=== PATIENT | female | born 1945 | race Caucasian/White ===

== ENCOUNTER 2016-10-09 09:03 | Inpatient (IN) | payer MEDICARE, OTHER ==
--- NOTE | 2016-10-05 10:51 | CONS ---
DATE OF ADMISSION: 10/09/2016 DATE OF CONSULTATION: 10/04/2016 Patient to have surgery with Dr. Manny Wallace 10/09/2016. REASON FOR CONSULTATION: Consultation requested by Dr. Manny Wallace for medical evaluation and clearance of a 71-year-old woman about to undergo surgery on her lumbar spine. Thank you, Dr. Wallace, for participating and allowing us to participate in the care of our patient. HISTORY OF PRESENT ILLNESS: Patt Foster is a 71-year-old woman issues with her back with extreme sciatic and discomfort is currently being admitted for correction of the above problem and will be undergoing decompression as well as fusion at L4-L5. PAST SURGICAL HISTORY: In terms of her past surgical history she has actually only had 2 breast biopsies, and no surgery. This will be the first major surgery she has had. She has had 1 medical hospitalization for rule out [place], which turned out not to be any particular problem. PAST MEDICAL HISTORY: Her main medical issues are diabetes. In general, hypothyroidism and some mild glaucoma, other than that has been managing relatively well. MEDICATIONS: She is currently taking the following medications: 1. GLIMEPRIMEDE 4 mg b.i.d. 2. Venlafaxine ER 150 mg a day. 3. Metformin 500 mg b.i.d. 4. Onglyza 5 mg a day. 5. Levothyroxine 75 mg a day. 6. Simvastatin 40 mg a day. 7. Jardiance 10 mg a day. 8. Eyedrops for glaucoma as well as mirtazapine 15 mg at bedtime. 9. TOPAMAX 100 mg b.i.d. ALLERGIES: SHE IS NOT ALLERGIC TO ANY MEDICINES. SOCIAL HISTORY: The patient is single, has no children. She does not smoke. Alcohol socially. Does drink coffee. Usually has no difficulty sleeping at night and worked for [employer], but currently retired. REVIEW OF SYSTEMS: HEENT: Denies any significant headaches. CARDIORESPIRATORY: Denies any chest pain or shortness of breath. GASTROINTESTINAL: No melena or hematemesis. GENITOURINARY: No urgency, frequency. GYNECOLOGIC: Postmenopause, up to date. MUSCULOSKELETAL: Positive for back pain. NEUROPSYCHIATRIC: Unremarkable other than some anxiety disorder. GENERAL HEALTH: Has been good. PHYSICAL EXAMINATION: VITAL SIGNS: The patient's blood pressure was 134/80, her pulse was 86, respirations were 18, temperature was 97.9, height 5 feet 8 inches, weight 195 pounds. GENERAL: The patient was noted to be a well-developed, well-nourished female, alert and cooperative, in no apparent acute distress, oriented to time, place, and person. HEAD, EARS, EYES, NOSE AND THROAT: Head was atraumatic. Eyes: Pupils were equal, reactive to light and accommodation. Fundi were benign. Tympanic membranes were unremarkable. Nose was negative. Mouth was unremarkable. Fair oral hygiene was present. NECK: Supple without any rigidity. Trachea was midline. Thyroid was within normal limits. Neck veins were flat. Carotid pulses were equal. No bruits were heard. BACK: Some tenderness of the lower back, but not any significant amount of muscle spasm. CHEST: Symmetrical. BREASTS AND AXILLARY EXAM: Did not reveal any masses. LUNGS: Clear to percussion and auscultation. HEART: PMI at the fifth intercostal space at the midclavicular line. Regular sinus rhythm was noted. No significant murmurs, rubs, or gallops being elicited. ABDOMEN: Soft, good bowel sounds were noted. No significant organomegaly, masses, or tenderness. GENITALIA: Female external genitalia. PELVIC/RECTAL: Per PCP unremarkable. EXTREMITIES: Did not reveal any clubbing, edema or cyanosis. Peripheral pulses were physiologic. SKIN: Moist and warm without any eruptions. No gross lymphadenopathy was noted. NEUROLOGICAL: Grossly intact. IMPRESSION: 1. Lumbar disk disease particularly L4-L5. 2. Diabetes mellitus type 2, under fairly good control. 3. Hypothyroidism. 4. Glaucoma. 5. Anxiety disorder. 6. Stable health. DISCUSSION: Review of laboratory and other data revealed the following: The patient's chemistry panel revealed a random post-prandial glucose of 210, normal electrolytes, BUN and creatinine, liver function tests, serum iron was minimally low. Her CBC revealed a mild anemia, albeit 11.2 hemoglobin, 35.6 hematocrit, however, the cells were not totally microcytic. The patient's urinalysis, PT, PTT were normal. The patient's EKG revealed some nonspecific ST -T wave changes, unchanged from prior surgeries and no acute hyperacute changes being noted on chest x-ray other than a pectus deformity and degenerative joint disease. The back did not reveal any acute infiltrates or any acute other abnormalities. DISCUSSION: Dr. Wallace, I see no contraindication in this patient undergoing current proposed surgery under desired form of anesthesia, and feel that she is a suitable candidate at this particular point in time and we will be following her along with you. Thank you again, Dr. Wallace, for participating and allowing us to participate in the care of our patient. Dictated By: BRISEYDA ROYAL/ANTHONY Conf#: [id number] DID#: [id number] MTDD
[2016-10-06 18:14] VITALS: BMI 29.5
[2016-10-09] VITALS (19 sets, daily range): BP systolic 126–140; BP diastolic 61–73; PULSE 60–103; RESP 14–18; Ht 172.7 cm; Wt 88.1 kg
[~2016-10-09] VITALS: Ht 172.7 cm; Wt 88.1 kg
[~2016-10-09 09:03] MED LIST: POLYMYXIN/BACITRACIN 1L IRRIG IRR ONE
[2016-10-09] MEDS ORDERED: GLIM4TAB PO (09:48)
[2016-10-09] MEDS ORDERED: LATA2.5D2 BOTH EYES (09:49)
[2016-10-09] MEDS ORDERED: METF500T3 PO (09:49)
[2016-10-09] MEDS ORDERED: VENL150T PO (09:51)
[2016-10-09] MEDS ORDERED: SAXA5TAB2 PO (09:52)
[2016-10-09] MEDS ORDERED: SIMV40TA2 PO (09:52)
[2016-10-09] MEDS ORDERED: LEVO75TA65 PO (09:53)
[2016-10-09] MEDS ORDERED: EMPA10TA PO (09:53)
[2016-10-09] MEDS ORDERED: MIRT15TA PO (09:54)
[2016-10-09] MEDS ORDERED: TOPI-25 PO (09:54)
[2016-10-09] MEDS ORDERED: [UNRECOGNIZED DRUG - CODE] TP (09:56)
[2016-10-09] MEDS ORDERED: OXYC-209 PO (09:57)
[2016-10-09] MEDS ORDERED: CYCL-319 PO (09:58)
[2016-10-09] MEDS ORDERED: LACTATED RINGER'S 1,000 ML IV* SCH (11:00)
[2016-10-09] MEDS ORDERED: CEFAZOLIN 2 GM/50 ML (PMX) 50 ML IVPB SCH (11:00)
[2016-10-09] MEDS ORDERED: MIDAZOLAM 1 MG/ML 2 ML INJ ONE (11:45)
[2016-10-09] MEDS ORDERED: PROPOFOL 100 ML ONE (11:45)
[2016-10-09] MEDS ORDERED: GELATIN SIZE 100 SPONGE ONE (11:48)
[2016-10-09] MEDS ORDERED: SURGIFOAM POWDER 1 GM KIT ONE (11:48)
[2016-10-09] MEDS ORDERED: BUPIVACAINE 0.25% (MPF) 30 ML INJ ONE (11:48)
[2016-10-09] MEDS ORDERED: BUPIVACAINE 0.25%/EPI (SDV) 30 ML INJ ONE (11:48)
[2016-10-09] MEDS ORDERED: HEPARIN 1000 UNITS/ML 10 ML INJ ONE (11:49)
[2016-10-09] MEDS ORDERED: THROMBIN 5000 UNIT VIAL ONE (11:49)
[2016-10-09] MEDS ORDERED: CEFAZOLIN 1 GM INJ ONE ×3 (11:50→15:42)
--- NOTE | 2016-10-09 12:16 | HPN ---
Date/Time of Note Date/Time of Note DATE: 10/09/16 TIME: 12:16 Interval H&P Admission Note Pt. seen H&P reviewed: No system changes EDGAR SINGLETON PA-C Oct 09, 2016 12:16
[2016-10-09] MEDS ORDERED: ACETAMINOPHEN 325 MG TAB PO PRN (12:30)
[2016-10-09] MEDS ORDERED: ONDANSETRON 4 MG INJ IV PRN ×2 (12:30→16:30)
[2016-10-09] MEDS ORDERED: NALOXONE (0.4 MG/ML) INJ IV PRN (12:30)
[2016-10-09] MEDS ORDERED: BISACODYL 10 MG SUPP PR PRN (12:30)
[2016-10-09] MEDS ORDERED: ZOLPIDEM 5 MG TAB PO PRN (12:30)
[2016-10-09] MEDS ORDERED: CARISOPRODOL 350 MG TAB PO PRN (12:30)
[2016-10-09] MEDS ORDERED: HYDROmorphONE 1 MG/ML SYG IV PRN (12:30)
[2016-10-09] MEDS ORDERED: DIPHENHYDRAMINE 50 MG INJ IV PRN ×2 (12:30→16:30)
[2016-10-09] MEDS ORDERED: CEPASTAT LOZENGE MT PRN (12:30)
[2016-10-09] MEDS ORDERED: HYDROmorphONE 0.2 MG/ML PCA IV SCH (12:30)
[2016-10-09] MEDS ORDERED: AL HYDROX/MG HYDROX/SIMETH 30 ML CUP PO PRN (12:30)
[2016-10-09] MEDS ORDERED: PHENYLephrine (100 MCG/ML) 5ML SYG ONE (13:02)
[2016-10-09] MEDS ORDERED: CA CHLORIDE 10% 10 ML SYRINGE ONE (13:03)
[2016-10-09] MEDS ORDERED: THROMBIN 5000 UNIT VIAL TOP ONE (13:07)
[2016-10-09] MEDS ORDERED: BUPIVACAINE 0.25%/EPI (SDV) 30 ML INJ INJ ONE (13:07)
[2016-10-09] MEDS ORDERED: ACETAMINOPHEN 1000MG/100ML IV 100 ML ONE (13:53)
[2016-10-09] MEDS ORDERED: METOCLOPRAMIDE 10 MG INJ ONE (13:53)
[2016-10-09] MEDS ORDERED: DEXAMETHASONE 4 MG/ML 1 ML INJ ONE (13:53)
[2016-10-09] MEDS ORDERED: ONDANSETRON 4 MG INJ ONE (13:53)
[2016-10-09] MEDS ORDERED: PROPOFOL 40 ML ONE (15:10)
[2016-10-09] MEDS ORDERED: FENTAnyl 50 MCG/ML VIAL ONE (15:38)
[2016-10-09] MEDS ORDERED: NEOSTIGMINE 3 MG/3 ML SYRINGE ONE (16:06)
[2016-10-09] MEDS ORDERED: GLYCOPYRROLATE 1 MG INJ ONE (16:06)
[2016-10-09] MEDS ORDERED: HYDROmorphONE (0.2 MG/ML) 10ML SYG IV PRN ×3 (16:30)
[2016-10-09] MEDS ORDERED: METOCLOPRAMIDE 10 MG INJ IV PRN (16:30)
[2016-10-09] MEDS ORDERED: MEPERIDINE 25 MG INJ IV PRN (16:30)
[2016-10-09] MEDS ORDERED: morphine (1 MG/ML) 10ML SYRINGE IV PRN ×3 (16:30)
[2016-10-09] MEDS ORDERED: EPHEDrine SULFATE 50 MG/5 ML SYG IV PRN (16:30)
[2016-10-09] MEDS ORDERED: LABETALOL HCL 20MG INJ IV PRN (16:30)
--- NOTE | 2016-10-09 16:32 | RADRPT ---
PROCEDURE: Intraoperative fluoroscopy. CLINICAL INDICATION: Intraoperative fluoroscopy during L4-5 lumbar fusion. TECHNIQUE: 12 spot intraoperative fluoroscopic images were provided. The images were reviewed on a high-resolution PACS workstation. COMPARISON: None available FINDINGS: Multiple spot intraoperative fluoroscopic views were provided during L4-5 lumbar fusion. The images demonstrate and is placement of pedicle screws in the L4 and L5 vertebral bodies and subsequent zaida cement of disc-space. The final images demonstrate hardware in satisfactory position. The total fl uoroscopy time was 53.6 seconds. IMPRESSION: 1. Multiple spot intraoperative fluoroscopic views during L4-5 lumbar fusion were provided. 2. Please see operative report of the same day for further information. RPTAT: HGAS .Trent Junior MD, Date Time Electronically viewed and signed by .Trnet Junior MD, on 10/09/2016 16:32 .S/
[2016-10-09] MEDS ORDERED: NALOXONE (0.4 MG/ML) INJ ONE (16:34)
[2016-10-09 17:05] LABS: ADD UMIC NO; URINE BILIRUBIN (Dip) NEGATIVE (NEGATIVE); URINE BLOOD (Dip) NEGATIVE (NEGATIVE); URINE COLOR LT. YELLOW (YELLOW); URINE KETONES (Dip) TRACE (NEGATIVE); URINE LEUKOCYTE ESTERASE (Dip) NEGATIVE (NEGATIVE); URINE NITRITE (Dip) NEGATIVE (NEGATIVE); URINE TOTAL PROTEIN (Dip) NEGATIVE (NEGATIVE); URINE UROBILINOGEN (Dip) 0.2 E.U./dL (0.1-1.0)
[2016-10-09] MEDS ORDERED: CEFAZOLIN 1 GM/50 ML (PMX) 50 ML IVPB SCH (18:00)
[2016-10-09] MEDS: GLIMEPIRIDE 4 MG TAB PO SCH (18:00)
[2016-10-09] MEDS: INSULIN ASPART [NOVOLOG] 3 ML PEN SC SCH ×2 (18:00→21:00)
--- NOTE | 2016-10-09 18:00 | CONS ---
Date/Time of Note Date/Time of Note DATE: 10/09/16 TIME: 17:57 Assessment/Plan Assessment/Plan Problems: (1) Status post lumbar discectomy Status: Acute Comment: She is seen postoperatively in stable in the recovery room. Continue care (2) Diabetes mellitus type 2 in obese Status: Chronic Comment: She will be on some of her outpatient regimen medications in addition she will be on Accu-Cheks and a sliding scale as needed. (3) Dysthymia (or depressive neurosis) Status: Chronic Comment: To continue her regular medications. Consultation Date/Type/Reason Admit Date/Time Oct 09, 2016 at 09:03 Initial Consult Date 10/09/2016 Type of Consultation: Internal medicine Reason for Consultation Postop care for diabetes dysthymia etc. Referring Provider: CARLITOS ROMERO MD 24 HR Interval Summary Free Text/Dictation Patient seen in recovery room. She is arousable and was somewhat direction can answer questions. Detailed Summary Respiratory: no complaints Cardiovascular: no complaints Gastrointestinal: no complaints Exam/Review of Systems Vital Signs Vitals Vital Signs Date Time Temp Pulse Resp B/P Pulse Ox O2 Delivery O2 Flow Rate FiO2 10/09/16 17:21 90 14 140/71 98 Nasal Cannula 3.0 10/09/16 16:41 98.5 Exam Arousable oriented to person and place Neck: non-tender, supple Respiratory: clear to auscultation, normal air movement Cardiovascular: nl pulses, regular rate and rhythm Gastrointestinal: nl liver, spleen, non-tender, soft Neurological: CUSTOMER SOLUTIONS COORDINATOR II-XII intact, nl mental status, nl speech, nl strength, other (Moves lower extremity) Results Results 24 hrs Laboratory Tests Test 10/09/16 10:54 10/09/16 16:38 10/09/16 16:39 Bedside Glucose 129 186 Urine Color LT. YELLOW Urine Clarity CLEAR Urine pH 5.0 Urine Specific [place] 1.020 Urine Ketones TRACE H Urine Nitrite NEGATIVE Urine Bilirubin NEGATIVE Urine Urobilinogen 0.2 E.U./dL Urine Leukocyte Esterase NEGATIVE Urine Hemoglobin NEGATIVE Urine Glucose 0.5% H Urine Total Protein NEGATIVE Medications Medications Current Medications Cefazolin Sodium/ Dextrose 50 ml @ 100 mls/hr PREOP IVPB ; Start 10/09/16 at 11 :00; Stop 10/09/16 at 23:00 Lactated Ringer's 1,000 ml @ 0 mls/hr Q0M IV* ; Start 10/09/16 at 11:00; Stop 10/09/16 at 23:00 Potassium Chloride/Sodium Chloride (1/2 NS + KCl 20 Meq) 1,000 ml @ 100 mls/hr Q10H IV ; Start 10/09/16 at 12:16 Oxycodone/ Acetaminophen (Endocet (10/ 325)) 1 tab Q4H PRN PO PAIN LEVEL 1-5; Start 10/11/16 at 10:00 Oxycodone/ Acetaminophen (Endocet (10/ 325)) 2 tab Q4H PRN PO PAIN LEVEL 6-10; Start 10/11/16 at 10:00 Hydromorphone HCl 0.2 mg 0.2 mg Q1H PRN IV BREAKTHROUGH PAIN; Start 10/09/16 at 12:30 Cefazolin Sodium (Ancef 1 Gm/50 ml (Pmx)) 50 ml @ 100 mls/hr Q8H IVPB ; Start 10/09/16 at 18:00; Stop 10/10/16 at 10:29 Ondansetron HCl (Zofran Inj) 4 mg Q6H PRN IV NAUSEA AND/OR VOMITING; Start at 12:30 Bisacodyl (Dulcolax Supp) 10 mg DAILY PRN [place] CONSTIPATION; Start 10/09/16 at 12 :30 Docusate Sodium (Colace) 100 mg BID PO ; Start 10/09/16 at 21:00 Al Hydrox/Mg Hydrox/Simethicone (Mag-Al Plus) 15 ml Q6H PRN PO CONSTIPATION/ DYSPEPSIA; Start 10/09/16 at 12:30 Acetaminophen (Tylenol Tab) 650 mg Q4H PRN PO GONZALEZ OR TEMP GREATER THAN 101.3F; Start 10/09/16 at 12:30 Carisoprodol (Soma) 350 mg TID PRN PO MUSCLE SPASMS; Start 10/09/16 at 12:30 Phenol (Cepastat Lozenge) 1 lozenge PRN PRN MT SORE THROAT; Start 10/09/16 at 12:30 Diphenhydramine HCl (Benadryl) 25 mg Q6H PRN IV ITCHING; Start 10/09/16 at 12: 30 Naloxone HCl (Narcan) 0.2 mg Q2M PRN IV RR 8 BREATHS/MIN OR LESS; Start at 12:30 Hydromorphone HCl (Dilaudid FASTENER TECHNOLOGIST) FASTENER TECHNOLOGIST to be started in PACU Q4PCA IV Last administered on 10/09/16t 17:11; Admin Dose 6 MG; Start 10/09/16 at 12:30; Stop 10/11/16 at 10:00 Miscellaneous Information 1. Hold FASTENER TECHNOLOGIST at 1,000... FASTENER TECHNOLOGIST IV ; Start 10/09/16 at 12: 30; Stop 10/11/16 at 10:00 RAMIREZ GAINES MD Oct 09, 2016 18:00
[2016-10-09] MEDS: metFORMIN (XR) 500 MG TAB PO SCH (18:30)
--- NOTE | 2016-10-09 19:23 | OPR ---
DATE OF OPERATION: 10/09/2016 PREOPERATIVE DIAGNOSIS: Unstable grade II degenerative spondylolisthesis with stenosis and radiculo leonel at L4-L5. POSTOPERATIVE DIAGNOSIS: Unstable grade II degenerative spondylolisthesis with stenosis and radicul opathy at L4-L5. OPERATION PERFORMED: 1. Pedicle screw placement at L4 and L5. 2. Left L4-5 and L5-S1 nerve root decompression for stenosis. 3. Transforaminal lumbar interbody fusion at L4-5. 4. Placement of intervertebral biomechanical device at L4-5. 5. Iliac crest bone marrow aspiration. 6. Posterolateral fusion at L4-5. 7. Use of allograft. 8. Use of autograft. 9. Use of C-arm fluoroscopy with interpretation without radiologist present. 10. Intraoperative neuromonitoring (3 hours). 11. Use of operative microscope. 12. Epidural injection via catheter. PRIMARY SURGEON: Manny Wallace MD INDUSTRIAL INSULATOR: Alanis Martinez PA-C NEED FOR PAPER CORE MACHINE OPERATOR: During this spinal surgical procedure, my pharmacy technician assistant was used to retrac t and protect the spinal nerves and dural sac. My pharmacy technician assistant also employed the suction catheters to evacuate blood from the surgical field to improve visualization of the neural structures. The vianca tant was medically necessary to facilitate the completion of the surgery in a safe and expeditious m belkis. State of [place] regulations, as well as hospital bylaws, preclude the use of non-license d health care personnel, such as operating room technicians, to perform these functions. FINDINGS: Neuromonitoring at the start of the case revealed left L4 and L5 amplitudes down 30%. At the end of the case, nerve signals returned to normal. The patient had an unstable listhesis with stenosis. ESTIMATED BLOOD LOSS: 200 mL. DRAINS: None. SPECIMENS: L4-5 disk. COMPLICATIONS OF PROCEDURES: None. ANESTHESIOLOGIST: Dr. Palafox TYPE OF ANESTHESIA: General. INDICATIONS FOR PROCEDURE: This is a 71-year-old female with left lumbosacral radiculopathy in the setting of an unstable listhesis at L4-L5. She has failed nonoperative measures, therefore, I recom mended proceeding with the above-mentioned surgery. Preoperatively, we discussed the risks, benefit s, and alternatives. She understood and wished to proceed. IMPLANTS: 1. Benvenue Salome 12 mm. 2. Neurostructure Palladian pedicle screws 6.5 x 40 mm bilaterally at L4-L5. 3. Fibergraft. DESCRIPTION OF PROCEDURE IN DETAIL: The patient was identified in the preoperative holding area, to chiang, taken to the operating room, where she was successfully placed under general a nesthesia. Neuromonitoring leads were placed, sequential compressive devices were applied. Child c atheter was introduced. Neuromonitoring was utilized during the procedure for 3 hours to include SS EP, MEP, and EMG. This was performed by [place]. Start time was 1:20 p.m., closure time w as 4:20 p.m. The patient was placed in downward turned prone position over a Arturo frame. All bon y prominences were well padded. The back was then prepped and draped in usual sterile fashion. Usi ng the C-arm fluoroscope, I identified the incision site. I anesthetized and paraspinal musculature with 0.25% Marcaine and epinephrine. Incision was then made over the L4-5 level. Incision was laurence en down to dorsal fascia, which was incised with Bovie cautery. I then subperiosteally dissected th e L4 and L5 lamina to the transverse processes. I took imaging to confirm the correct levels. Once this was confirmed, I placed pedicle screws bilaterally at L4 and L5 confirmed placement using the C-arm fluoroscope. Once the pedicle screws were in, I stimulated each of the screws and there was n o evidence of cortical breach. I then performed a right-sided decompression at the L4-5 level. Thi s decompression was done in order to alleviate the stenosis and beyond what was required in order to perform an interbody fusion. I visualized and decompressed the left L4 and L5 nerve roots. Once t his was completed, all nerve signals returned to normal. Microscope was then brought in and annulot savanna was made followed by radical diskectomy. Significant amount of time was spent performing a disk ectomy in order to perform the interbody fusion. I prepared the endplates and placed various trials . I then took the PEEK cage, within which I placed allograft, and I impacted the intervertebral bio mechanical device into the L4-5 level. I deployed this under C-arm imaging for lordosis. I then ba ck filled cage using Fibergraft. I then cut the wires. The Arturo frame was then let down. Keshawn darden was taken off the field. I placed the 45 mm rods bilaterally with compression across the pedic le screws with setscrew placed followed by tightening per party director specifications. At this poin t, I took final AP and lateral images and was happy with placement of the hardware and alignment of the spine. Bone marrow aspiration was then performed from the right iliac crest and the bone marrow was spun down using the Memoright device. I then irrigated the wound. I did not perform a right-si ded decompression, as the patient only had left-sided symptoms. I burred the transverse processes b ilaterally at L4 and L5 as well as the posterior lamina of L4 and L5. I then took autograft and all ograft and I performed a posterolateral fusion. Epidural catheter was passed through which I inject ed 100 mcg fentanyl mixed with 2 mL of Marcaine 0.25% preservative-free, and the catheter was pulled . I then took the platelet-poor plasma mixed with thrombin and injected this over the dura for hemo static purposes. There is minimal bleeding, therefore, I elected not to place a drain. The transfo raminal lumbar interbody fusion was completed and I checked the cage once I had compressed and there was no motion of the cage. I then closed the deep fascia with a running Stratafix suture. I close d the subcutaneous tissue with 2-0 Vicryl stitch. I then performed a 4-0 Monocryl closure followed by placement of Dermabond and sterile dressings. The patient was awakened from anesthesia and taken to the recovery room in stable condition. Lap, sponge, and instrument counts were correct x2. The re were no apparent complications during the procedure. The patient will be admitted to the orthopedic [facility] for routine postoperative care to include pain c ontrol, neurovascular checks, antibiotics, and physical therapy. Dictated By: MANNY JONES/ANTHONY Conf#: [id number] DID#: [id number]
[2016-10-09] MEDS: 1/2 NS + KCL 20 MEQ 1,000 ML IV SCH ×2 (19:34→22:16)
[2016-10-09] MEDS: ACCU-CHEK XX SCH (19:55)
[2016-10-09] MEDS: TOPIRAMATE 100 MG TAB PO SCH (21:27)
[2016-10-09] MEDS: DOCUSATE SODIUM 100 MG CAP PO SCH (21:27)
[2016-10-09] MEDS: MIRTAZAPINE 15 MG TAB PO SCH (21:27)
[2016-10-09] MEDS: ATORVASTATIN 40 MG TAB PO SCH (21:27)
[2016-10-09] MEDS: CEFAZOLIN 1 GM/50 ML (PMX) 50 ML IVPB SCH (21:28)
[2016-10-09] MEDS: LATANOPROST 0.005% 2.5 ML OPH BOTH EYES SCH (21:28)
[2016-10-10] VITALS (12 sets, daily range): BP systolic 78–166; BP diastolic 44–74; PULSE 56–116; RESP 18–20
[2016-10-10] MEDS: ACCU-CHEK XX SCH ×2 (02:00→09:50)
[2016-10-10] MEDS ORDERED: ACCU-CHEK XX SCH (02:00)
[2016-10-10] MEDS: CEFAZOLIN 1 GM/50 ML (PMX) 50 ML IVPB SCH ×2 (05:08→13:32)
[2016-10-10 05:13] LABS: ADD SCAN DIFF NO
[2016-10-10 05:23] LABS: BASOPHILS % 0.2 % (0.0-2.0); EOSINOPHILS % 0.3 % (0.0-7.0); HEMATOCRIT 32.4 % (37.0-47.0); HEMOGLOBIN 10.1 g/dl (12.0-16.0); LYMPHOCYTES # 2.7 10^3/ul (0.8-2.9); LYMPHOCYTES % 22.2 % (15.0-51.0); MEAN CORPUSCULAR HEMOGLOBIN 27.1 pg (29.0-33.0); MEAN CORPUSCULAR HGB CONC 31.2 g/dl (32.0-37.0); MEAN CORPUSCULAR VOLUME 86.9 fl (82.0-101.0); MEAN PLATELET VOLUME 10.6 fl (7.4-10.4); MONOCYTE # 0.7 10^3/ul (0.3-0.9); MONOCYTES % 5.9 % (0.0-11.0); NEUTROPHIL # 8.6 10^3/ul (1.6-7.5); NEUTROPHILS % 70.9 % (39.0-77.0); PLATELET COUNT 292 10^3/UL (140-415); RED BLOOD COUNT 3.73 10^6/ul (4.20-5.40); RED CELL DISTRIBUTION WIDTH 16.3 % (11.5-14.5); WHITE BLOOD COUNT 12.2 10^3/ul (4.8-10.8)
[2016-10-10] MEDS: 1/2 NS + KCL 20 MEQ 1,000 ML IV SCH ×2 (06:14→17:47)
[2016-10-10] MEDS: LEVOTHYROXINE 75 MCG TAB PO SCH (06:14)
--- NOTE | 2016-10-10 07:05 | PN ---
Date/Time of Note Date/Time of Note DATE: 10/10/16 TIME: 07:04 Assessment/Plan Lines/Catheters IV Catheter Type (from Nrsg): Peripheral IV Child in Place (from Nrsg): Yes Assessment/Plan Assessment/Plan s/p fusion routing post-op care Subjective 24 Hr Interval Summary no leg pain Exam/Review of Systems Vital Signs Vitals Vital Signs Date Time Temp Pulse Resp B/P Pulse Ox O2 Delivery O2 Flow Rate FiO2 10/10/16 05:31 97.7 56 18 129/62 100 Nasal Cannula 2.0 Intake and Output 10/09/16 10/09/16 10/10/16 15:00 23:00 07:00 Intake Total 1500 ml 1950 ml Output Total 450 ml 2300 ml Balance 1050 ml -350 ml Exam Free Text/Dictation nvi Results Result Diagram: 10/10/16 0425 CARLITOS ROMERO MD Oct 10, 2016 07:05
[2016-10-10 07:24] LABS: POTASSIUM 4.9 mmol/L (3.5-5.1)
[2016-10-10 07:26] LABS: CREATININE 0.72 mg/dl (0.44-1.00)
[2016-10-10 07:27] LABS: CALCIUM 8.9 mg/dl (8.4-10.2); MAGNESIUM 1.9 mg/dl (1.7-2.5)
[2016-10-10] MEDS: INSULIN ASPART [NOVOLOG] 3 ML PEN SC SCH ×4 (07:50→20:11)
[2016-10-10] MEDS ORDERED: GLUCOSE GEL 15 GRAM TUBE BUCCAL PRN (09:00)
[2016-10-10] MEDS ORDERED: GLUCAGON 1 MG INJ IM PRN (09:00)
[2016-10-10] MEDS ORDERED: SAXAGLIPTIN HYDROCHLORIDE 5 MG TAB PO SCH (09:00)
[2016-10-10] MEDS ORDERED: DEXTROSE 50% 50 ML SYRINGE IV PRN ×2 (09:00)
[2016-10-10] MEDS ORDERED: GLUCOSE GEL 15 GRAM TUBE PO PRN ×2 (09:00)
[2016-10-10] MEDS: GLIMEPIRIDE 4 MG TAB PO SCH ×2 (09:32→17:45)
[2016-10-10] MEDS: DOCUSATE SODIUM 100 MG CAP PO SCH ×2 (09:32→20:00)
[2016-10-10] MEDS: metFORMIN (XR) 500 MG TAB PO SCH ×2 (09:33→17:45)
[2016-10-10] MEDS: TOPIRAMATE 100 MG TAB PO SCH ×2 (09:34→20:00)
[2016-10-10] MEDS: VENLAFAXINE (XR) 75 MG CAP PO SCH (09:40)
[2016-10-10] MEDS: LINAGLIPTIN 5 MG TABLET PO SCH (10:00)
[2016-10-10] MEDS ORDERED: SOD CHLORIDE 0.9% 250 ML IV ONE ×2 (11:00)
--- NOTE | 2016-10-10 14:25 | CONS ---
Date/Time of Note Date/Time of Note DATE: 10/10/16 TIME: 14:23 Assessment/Plan Assessment/Plan Problems: (1) Status post lumbar discectomy Status: Acute Comment: Patient had a bit of bloating low blood pressure when she first got up with physical therapy. Please note she got up within 5 minutes of having given herself a bolus of pain medication via the PRINT MACHINE OPERATOR. She has had some fluids and I believe she can start doing at least the sitting up and perhaps bedside standing this afternoon. (2) Diabetes mellitus type 2 in obese Status: Chronic Comment: Stable control (3) Dysthymia (or depressive neurosis) Status: Chronic Comment: On treatment Consultation Date/Type/Reason Admit Date/Time Oct 09, 2016 at 09:03 Initial Consult Date 10/09/2016 Type of Consultation: Internal medicine Referring Provider: CARLITOS ROMERO MD 24 HR Interval Summary Constitutional: no complaints Detailed Summary Respiratory: no complaints Cardiovascular: no complaints (No dyspnea no chest pain no palpitation) Gastrointestinal: no complaints Exam/Review of Systems Vital Signs Vitals Vital Signs Date Time Temp Pulse Resp B/P Pulse Ox O2 Delivery O2 Flow Rate FiO2 10/10/16 14:01 116 18 124/64 10/10/16 09:06 97.7 100 10/10/16 05:31 Nasal Cannula 2.0 Intake and Output 10/09/16 10/09/16 10/10/16 15:00 23:00 07:00 Intake Total 1500 ml 1950 ml Output Total 450 ml 2300 ml Balance 1050 ml -350 ml Exam Constitutional: alert, oriented Respiratory: clear to auscultation, normal air movement Cardiovascular: nl pulses, regular rate and rhythm Gastrointestinal: nl liver, spleen, non-tender, soft Results Result Diagram: 10/10/16 0425 10/10/16 0425 Results 24 hrs Laboratory Tests Test 10/09/16 16:38 10/09/16 16:39 10/09/16 21:22 10/10/16 04:25 Bedside Glucose 186 154 Urine Color LT. YELLOW Urine Clarity CLEAR Urine pH 5.0 Urine Specific [place] 1.020 Urine Ketones TRACE H Urine Nitrite NEGATIVE Urine Bilirubin NEGATIVE Urine Urobilinogen 0.2 E.U./dL Urine Leukocyte Esterase NEGATIVE Urine Hemoglobin NEGATIVE Urine Glucose 0.5% H Urine Total Protein NEGATIVE White Blood Count 12.2 H Red Blood Count 3.73 L Hemoglobin 10.1 L Hematocrit 32.4 L Mean Corpuscular Volume 86.9 Mean Corpuscular Hemoglobin 27.1 L Mean Corpuscular Hemoglobin Concent 31.2 L Red Cell Distribution Width 16.3 H Platelet Count 292 Mean Platelet Volume 10.6 H Neutrophils % 70.9 Lymphocytes % 22.2 Monocytes % 5.9 Eosinophils % 0.3 Basophils % 0.2 Nucleated Red Blood Cells % 0.0 Neutrophils # 8.6 H Lymphocytes # 2.7 Monocytes # 0.7 Eosinophils # 0.0 Basophils # 0.0 Nucleated Red Blood Cells # 0.0 Sodium Level 139 Potassium Level 4.9 Chloride Level 105 Carbon Dioxide Level 27 Anion Gap 12 Blood Urea Nitrogen 16 Creatinine 0.72 Glucose Level 110 Calcium Level 8.9 Magnesium Level 1.9 Test 10/10/16 07:57 10/10/16 10:33 10/10/16 12:23 Bedside Glucose 87 147 136 Medications Medications Current Medications Potassium Chloride/Sodium Chloride (1/2 NS + KCl 20 Meq) 1,000 ml @ 100 mls/hr Q10H IV Last administered on 10/10/16 06:14; Admin Dose 100 MLS/HR; Start at 12:16 Oxycodone/ Acetaminophen (Endocet (10/ 325)) 1 tab Q4H PRN PO PAIN LEVEL 1-5; Start 10/11/16 at 10:00 Oxycodone/ Acetaminophen (Endocet (10/ 325)) 2 tab Q4H PRN PO PAIN LEVEL 6-10; Start 10/11/16 at 10:00 Hydromorphone HCl (Dilaudid) 0.2 mg Q1H PRN IV BREAKTHROUGH PAIN; Start at 12:30 Ondansetron HCl (Zofran Inj) 4 mg Q6H PRN IV NAUSEA AND/OR VOMITING; Start at 12:30 Bisacodyl (Dulcolax Supp) 10 mg DAILY PRN [place] CONSTIPATION; Start 10/09/16 at 12 :30 Docusate Sodium (Colace) 100 mg BID PO Last administered on 10/10/16 09:32; Admin Dose 100 MG; Start 10/09/16 at 21:00 Al Hydrox/Mg Hydrox/Simethicone (Mag-Al Plus) 15 ml Q6H PRN PO CONSTIPATION/ DYSPEPSIA; Start 10/09/16 at 12:30 Acetaminophen (Tylenol Tab) 650 mg Q4H PRN PO GONZALEZ OR TEMP GREATER THAN 101.3F; Start 10/09/16 at 12:30 Carisoprodol (Soma) 350 mg TID PRN PO MUSCLE SPASMS; Start 10/09/16 at 12:30 Phenol (Cepastat Lozenge) 1 lozenge PRN PRN MT SORE THROAT; Start 10/09/16 at 12:30 Diphenhydramine HCl (Benadryl) 25 mg Q6H PRN IV ITCHING; Start 10/09/16 at 12: 30 Naloxone HCl (Narcan) 0.2 mg Q2M PRN IV RR 8 BREATHS/MIN OR LESS; Start at 12:30 Hydromorphone HCl (Dilaudid PRINT MACHINE OPERATOR) PRINT MACHINE OPERATOR to be started in PACU Q4PCA IV Last administered on 10/09/16 17:11; Admin Dose 6 MG; Start 10/09/16 at 12:30; Stop 10/11/16 at 10:00 Miscellaneous Information 1. Hold PRINT MACHINE OPERATOR at 1,000... PRINT MACHINE OPERATOR IV ; Start 10/09/16 at 12: 30; Stop 10/11/16 at 10:00 Latanoprost (Xalatan) 1 drop QHS BOTH EYES Last administered on 10/09/16 21:28 ; Admin Dose 1 DROP; Start 10/09/16 at 21:00 Mirtazapine (Remeron) 15 mg HS PO Last administered on 10/09/16 21:27; Admin Dose 15 MG; Start 10/09/16 at 21:00 Topiramate (Topamax) 100 mg BID PO Last administered on 10/10/16 09:34; Admin Dose 100 MG; Start 10/09/16 at 21:00 Venlafaxine HCl (Effexor Xr) 150 mg DAILY PO Last administered on 10/10/16 09: 40; Admin Dose 150 MG; Start 10/10/16 at 09:00 Atorvastatin Calcium (Lipitor) 40 mg HS PO Last administered on 10/09/16 21:27 ; Admin Dose 40 MG; Start 10/09/16 at 21:00 Diagnostic Test (Pha) (Accu-Chek) 1 ea 02 XX ; Start 10/10/16 at 02:00 Miscellaneous Information 1 ea NOTE XX ; Start 10/10/16 at 09:00 Glucose (Glutose) 15 gm Q15M PRN PO DECREASED GLUCOSE; Start 10/10/16 at 09:00 Glucose (Glutose) 22.5 gm Q15M PRN PO DECREASED GLUCOSE; Start 10/10/16 at 09: 00 Dextrose (D50w Syringe) 25 ml Q15M PRN IV DECREASED GLUCOSE; Start 10/10/16 at 09:00 Dextrose (D50w Syringe) 50 ml Q15M PRN IV DECREASED GLUCOSE; Start 10/10/16 at 09:00 Glucagon (Glucagen) 1 mg Q15M PRN IM DECREASED GLUCOSE; Start 10/10/16 at 09:00 Glucose (Glutose) 15 gm Q15M PRN BUCCAL DECREASED GLUCOSE; Start 10/10/16 at 09 :00 Linagliptin (Tradjenta) 5 mg DAILY PO ; Start 10/10/16 at 10:00 RAMIREZ GAINES MD Oct 10, 2016 14:25
[2016-10-10] MEDS: LATANOPROST 0.005% 2.5 ML OPH BOTH EYES SCH (20:00)
[2016-10-10] MEDS: ATORVASTATIN 40 MG TAB PO SCH (20:00)
[2016-10-10] MEDS: MIRTAZAPINE 15 MG TAB PO SCH (20:04)
[2016-10-11] MEDS: ACCU-CHEK XX SCH (01:57)
[2016-10-11] MEDS: 1/2 NS + KCL 20 MEQ 1,000 ML IV SCH ×2 (03:42→14:16)
[2016-10-11] MEDS: LEVOTHYROXINE 75 MCG TAB PO SCH (05:01)
[2016-10-11 05:02] LABS: ADD SCAN DIFF NO
[2016-10-11 05:20] LABS: BASOPHILS % 0.2 % (0.0-2.0); EOSINOPHILS # 0.1 10^3/ul (0.0-0.5); EOSINOPHILS % 0.4 % (0.0-7.0); HEMATOCRIT 31.2 % (37.0-47.0); HEMOGLOBIN 9.6 g/dl (12.0-16.0); LYMPHOCYTES # 1.7 10^3/ul (0.8-2.9); LYMPHOCYTES % 11.7 % (15.0-51.0); MEAN CORPUSCULAR HEMOGLOBIN 26.8 pg (29.0-33.0); MEAN CORPUSCULAR HGB CONC 30.8 g/dl (32.0-37.0); MEAN CORPUSCULAR VOLUME 87.2 fl (82.0-101.0); MEAN PLATELET VOLUME 10.6 fl (7.4-10.4); MONOCYTE # 1.1 10^3/ul (0.3-0.9); NEUTROPHIL # 11.2 10^3/ul (1.6-7.5); NEUTROPHILS % 79.3 % (39.0-77.0); PLATELET COUNT 260 10^3/UL (140-415); RED BLOOD COUNT 3.58 10^6/ul (4.20-5.40); RED CELL DISTRIBUTION WIDTH 16.3 % (11.5-14.5); WHITE BLOOD COUNT 14.1 10^3/ul (4.8-10.8)
[2016-10-11 05:25] LABS: CREATININE 0.69 mg/dl (0.44-1.00)
[2016-10-11 05:26] LABS: CALCIUM 8.4 mg/dl (8.4-10.2); MAGNESIUM 1.7 mg/dl (1.7-2.5)
[2016-10-11 07:00] VITALS: BP 147/65; RESP 20
[2016-10-11] MEDS: metFORMIN (XR) 500 MG TAB PO SCH ×2 (07:50→18:46)
[2016-10-11] MEDS ORDERED: OXYCODONE/ACETAMINOPHEN (10/325) TAB PO PRN ×3 (08:30→10:00)
--- NOTE | 2016-10-11 08:30 | PN ---
Date/Time of Note Date/Time of Note DATE: 10/11/16 TIME: 08:28 Assessment/Plan Lines/Catheters IV Catheter Type (from Nrsg): Peripheral IV Child in Place (from Nrsg): Yes Assessment/Plan Assessment/Plan Status post lumbar fusion Patient will need physical therapy. She was unable to do physical therapy yesterday due to low blood pressure. We will DC [employer] and Child catheter today. The patient has a slightly slurred speech most likely due to medications. We will reassess later today. Subjective 24 Hr Interval Summary Complains of low back pain. No leg discomfort or shortness of breath Exam/Review of Systems Vital Signs Vitals Vital Signs Date Time Temp Pulse Resp B/P Pulse Ox O2 Delivery O2 Flow Rate FiO2 10/11/16 07:00 99.1 97 20 147/65 99 10/10/16 21:45 Nasal Cannula 2.0 Intake and Output 10/10/16 10/10/16 10/11/16 15:00 23:00 07:00 Intake Total 300 ml 750 ml Output Total 1600 ml Balance 300 ml -850 ml Exam Free Text/Dictation Patient is neurovascularly intact. She is alert and oriented but her speech is slightly slurred. Results Result Diagram: 10/11/16 0420 10/11/16 0420 CARLITOS ROMERO MD Oct 11, 2016 08:30
[2016-10-11] MEDS: TOPIRAMATE 100 MG TAB PO SCH ×2 (09:41→20:32)
[2016-10-11] MEDS: DOCUSATE SODIUM 100 MG CAP PO SCH ×2 (09:41→20:32)
[2016-10-11] MEDS: GLIMEPIRIDE 4 MG TAB PO SCH ×2 (09:41→18:46)
[2016-10-11] MEDS: LINAGLIPTIN 5 MG TABLET PO SCH (09:41)
[2016-10-11] MEDS: VENLAFAXINE (XR) 75 MG CAP PO SCH (09:42)
[2016-10-11] MEDS: INSULIN ASPART [NOVOLOG] 3 ML PEN SC SCH ×4 (09:43→20:25)
[2016-10-11] MEDS: OXYCODONE/ACETAMINOPHEN (10/325) TAB PO PRN ×2 (09:44→20:50)
--- NOTE | 2016-10-11 18:06 | PN ---
Date/Time of Note Date/Time of Note DATE: 10/11/16 TIME: 18:04 Assessment/Plan VTE Prophylaxis VTE Prophylaxis Intervention: SCD's Lines/Catheters IV Catheter Type (from Nrs): Peripheral IV Urinary Cath still in place: No Assessment/Plan Problems: (1) Diabetes mellitus type 2 in obese Status: Chronic Comment: She is well controlled on relatively minimal medications. (2) Status post lumbar discectomy Status: Acute Comment: She has had a slow progression partially from the pain medications causing some degree of sedation. Regardless she is now ambulating with physical therapy with some difficulty. I expect in the next 48 hours we will get her up to the point where she is able to manage (3) Dysthymia (or depressive neurosis) Status: Chronic Comment: Stable and quiescent Subjective 24 Hr Interval Summary Free Text/Dictation Patient much more alert and oriented today. She has actually ambulated with physical therapy already Constitutional: no complaints Respiratory: no complaints Cardiovascular: no complaints Gastrointestinal: no complaints Genitourinary: no complaints Musculoskeletal: back pain Neurologic: no complaints Exam/Review of Systems Vital Signs Vitals Vital Signs Date Time Temp Pulse Resp B/P Pulse Ox O2 Delivery O2 Flow Rate FiO2 10/11/16 07:50 Nasal Cannula 2.0 10/11/16 07:00 99.1 97 20 147/65 99 Intake and Output 10/10/16 10/10/16 10/11/16 15:00 23:00 07:00 Intake Total 300 ml 750 ml Output Total 1600 ml Balance 300 ml -850 ml Exam Constitutional: alert, oriented (Oriented to person place and time and situation) Neck: non-tender, supple Respiratory: clear to auscultation, normal air movement Cardiovascular: nl pulses, regular rate and rhythm Gastrointestinal: nl liver, spleen, non-tender, soft Results Result Diagram: 10/11/16 0420 10/11/16 0420 Results 24 hrs Laboratory Tests Test 10/10/16 20:08 10/11/16 01:51 10/11/16 04:20 10/11/16 07:59 Bedside Glucose 216 155 168 White Blood Count 14.1 H Red Blood Count 3.58 L Hemoglobin 9.6 L Hematocrit 31.2 L Mean Corpuscular Volume 87.2 Mean Corpuscular Hemoglobin 26.8 L Mean Corpuscular Hemoglobin Concent 30.8 L Red Cell Distribution Width 16.3 H Platelet Count 260 Mean Platelet Volume 10.6 H Neutrophils % 79.3 H Lymphocytes % 11.7 L Monocytes % 8.0 Eosinophils % 0.4 Basophils % 0.2 Nucleated Red Blood Cells % 0.0 Neutrophils # 11.2 H Lymphocytes # 1.7 Monocytes # 1.1 H Eosinophils # 0.1 Basophils # 0.0 Nucleated Red Blood Cells # 0.0 Sodium Level 136 Potassium Level 4.0 Chloride Level 105 Carbon Dioxide Level 25 Anion Gap 10 Blood Urea Nitrogen 11 Creatinine 0.69 Glucose Level 160 Calcium Level 8.4 Magnesium Level 1.7 Test 10/11/16 12:25 10/11/16 17:33 Bedside Glucose 158 100 Medications Medications Current Medications Potassium Chloride/Sodium Chloride (07/17 NS + KCl 20 Meq) 1,000 ml @ 100 mls/hr Q10H IV Last administered on 10/11/16 03:42; Admin Dose 100 MLS/HR; Start at 12:16 Hydromorphone HCl (Dilaudid) 0.2 mg Q1H PRN IV BREAKTHROUGH PAIN; Start at 12:30 Ondansetron HCl (Zofran Inj) 4 mg Q6H PRN IV NAUSEA AND/OR VOMITING; Start at 12:30 Bisacodyl (Dulcolax Supp) 10 mg DAILY PRN [place] CONSTIPATION; Start 10/09/16 at 12 :30 Docusate Sodium (Colace) 100 mg BID PO Last administered on 10/11/16 09:41; Admin Dose 100 MG; Start 10/09/16 at 21:00 Al Hydrox/Mg Hydrox/Simethicone (Mag-Al Plus) 15 ml Q6H PRN PO CONSTIPATION/ DYSPEPSIA; Start 10/09/16 at 12:30 Acetaminophen (Tylenol Tab) 650 mg Q4H PRN PO GONZALEZ OR TEMP GREATER THAN 101.3F; Start 10/09/16 at 12:30 Carisoprodol (Soma) 350 mg TID PRN PO MUSCLE SPASMS; Start 10/09/16 at 12:30 Phenol (Cepastat Lozenge) 1 lozenge PRN PRN MT SORE THROAT; Start 10/09/16 at 12:30 Diphenhydramine HCl (Benadryl) 25 mg Q6H PRN IV ITCHING; Start 10/09/16 at 12: 30 Naloxone HCl (Narcan) 0.2 mg Q2M PRN IV RR 8 BREATHS/MIN OR LESS; Start at 12:30 Latanoprost (Xalatan) 1 drop QHS BOTH EYES Last administered on 10/10/16 20:00 ; Admin Dose 1 DROP; Start 10/09/16 at 21:00 Mirtazapine (Remeron) 15 mg HS PO Last administered on 10/10/16 20:04; Admin Dose 15 MG; Start 10/09/16 at 21:00 Topiramate (Topamax) 100 mg BID PO Last administered on 10/11/16 09:41; Admin Dose 100 MG; Start 10/09/16 at 21:00 Venlafaxine HCl (Effexor Xr) 150 mg DAILY PO Last administered on 10/11/16 09: 42; Admin Dose 150 MG; Start 10/10/16 at 09:00 Atorvastatin Calcium (Lipitor) 40 mg HS PO Last administered on 10/10/16 20:00 ; Admin Dose 40 MG; Start 10/09/16 at 21:00 Diagnostic Test (Pha) (Accu-Chek) 1 ea 02 XX ; Start 10/10/16 at 02:00 Miscellaneous Information 1 ea NOTE XX ; Start 10/10/16 at 09:00 Glucose (Glutose) 15 gm Q15M PRN PO DECREASED GLUCOSE; Start 10/10/16 at 09:00 Glucose (Glutose) 22.5 gm Q15M PRN PO DECREASED GLUCOSE; Start 10/10/16 at 09: 00 Dextrose (D50w Syringe) 25 ml Q15M PRN IV DECREASED GLUCOSE; Start 10/10/16 at 09:00 Dextrose (D50w Syringe) 50 ml Q15M PRN IV DECREASED GLUCOSE; Start 10/10/16 at 09:00 Glucagon (Glucagen) 1 mg Q15M PRN IM DECREASED GLUCOSE; Start 10/10/16 at 09:00 Glucose (Glutose) 15 gm Q15M PRN BUCCAL DECREASED GLUCOSE; Start 10/10/16 at 09 :00 Linagliptin (Tradjenta) 5 mg DAILY PO Last administered on 10/11/16 09:41; Admin Dose 5 MG; Start 10/10/16 at 10:00 Oxycodone/ Acetaminophen (Endocet (10 325)) 1 tab Q4H PRN PO PAIN LEVEL 1-5 Last administered on 10/11/16t 09:44; Admin Dose 1 TAB; Start 10/11/16 at 08:30 Oxycodone/ Acetaminophen (Endocet (10 325)) 2 tab Q4H PRN PO PAIN LEVEL 6-10; Start 10/11/16 at 08:30 RAMIREZ GAINES MD Oct 11, 2016 18:06
[2016-10-11] MEDS: ATORVASTATIN 40 MG TAB PO SCH (20:32)
[2016-10-11] MEDS: MIRTAZAPINE 15 MG TAB PO SCH (20:32)
[2016-10-11 20:33] VITALS: BP 123/57; RESP 18
[2016-10-11] MEDS: LATANOPROST 0.005% 2.5 ML OPH BOTH EYES SCH (20:33)
[2016-10-12] MEDS: 1/2 NS + KCL 20 MEQ 1,000 ML IV SCH ×3 (00:16→20:02)
[2016-10-12] MEDS: ACCU-CHEK XX SCH (01:56)
[2016-10-12 05:16] LABS: ADD SCAN DIFF NO
[2016-10-12 05:30] LABS: BASOPHILS % 0.2 % (0.0-2.0); EOSINOPHILS # 0.2 10^3/ul (0.0-0.5); EOSINOPHILS % 1.6 % (0.0-7.0); HEMATOCRIT 29.9 % (37.0-47.0); HEMOGLOBIN 9.2 g/dl (12.0-16.0); LYMPHOCYTES # 2.2 10^3/ul (0.8-2.9); LYMPHOCYTES % 18.6 % (15.0-51.0); MEAN CORPUSCULAR HEMOGLOBIN 26.9 pg (29.0-33.0); MEAN CORPUSCULAR HGB CONC 30.8 g/dl (32.0-37.0); MEAN CORPUSCULAR VOLUME 87.4 fl (82.0-101.0); MEAN PLATELET VOLUME 10.6 fl (7.4-10.4); MONOCYTE # 0.8 10^3/ul (0.3-0.9); MONOCYTES % 6.5 % (0.0-11.0); NEUTROPHIL # 8.6 10^3/ul (1.6-7.5); NEUTROPHILS % 72.8 % (39.0-77.0); PLATELET COUNT 258 10^3/UL (140-415); RED BLOOD COUNT 3.42 10^6/ul (4.20-5.40); RED CELL DISTRIBUTION WIDTH 16.2 % (11.5-14.5); WHITE BLOOD COUNT 11.8 10^3/ul (4.8-10.8)
[2016-10-12 05:40] LABS: POTASSIUM 3.8 mmol/L (3.5-5.1)
[2016-10-12 05:43] LABS: CALCIUM 8.8 mg/dl (8.4-10.2); CREATININE 0.81 mg/dl (0.44-1.00)
[2016-10-12 05:44] LABS: MAGNESIUM 1.8 mg/dl (1.7-2.5)
[2016-10-12] MEDS: LEVOTHYROXINE 75 MCG TAB PO SCH (06:01)
[2016-10-12] MEDS: INSULIN ASPART [NOVOLOG] 3 ML PEN SC SCH ×4 (07:50→20:51)
[2016-10-12 07:51] VITALS: BP 119/62; RESP 19
--- NOTE | 2016-10-12 08:04 | PN ---
Date/Time of Note Date/Time of Note DATE: 10/12/16 TIME: 08:02 Assessment/Plan Lines/Catheters IV Catheter Type (from Nrs): Saline Lock Child in Place (from Nrs): No Assessment/Plan Assessment/Plan s/p lumbar fusion acute rehab consult today D/C to acute rehab if cleared by PMD Subjective 24 Hr Interval Summary legs feel better patient having difficulty with PT Exam/Review of Systems Vital Signs Vitals Vital Signs Date Time Temp Pulse Resp B/P Pulse Ox O2 Delivery O2 Flow Rate FiO2 10/12/16 07:51 98.2 79 19 119/62 98 10/11/16 20:10 Nasal Cannula 2.0 Intake and Output 10/11/16 10/11/16 10/12/16 14:59 22:59 06:59 Intake Total 900 ml 700 ml Output Total 400 ml 500 ml Balance 500 ml 200 ml Exam Free Text/Dictation NVID VSS dressing intact - will D/C Results Result Diagram: 10/12/16 0435 10/12/16 0435 EDGAR SINGLETON PA-C Oct 12, 2016 08:03
[2016-10-12] MEDS: VENLAFAXINE (XR) 75 MG CAP PO SCH (08:52)
[2016-10-12] MEDS: TOPIRAMATE 100 MG TAB PO SCH ×2 (08:52→20:52)
[2016-10-12] MEDS: GLIMEPIRIDE 4 MG TAB PO SCH ×2 (08:52→18:54)
[2016-10-12] MEDS: metFORMIN (XR) 500 MG TAB PO SCH ×2 (08:52→18:55)
[2016-10-12] MEDS: LINAGLIPTIN 5 MG TABLET PO SCH (08:52)
[2016-10-12] MEDS: DOCUSATE SODIUM 100 MG CAP PO SCH ×2 (08:52→20:52)
--- NOTE | 2016-10-12 13:16 | PN ---
Date/Time of Note Date/Time of Note DATE: 10/12/16 TIME: 13:15 Assessment/Plan VTE Prophylaxis VTE Prophylaxis Intervention: heparin Lines/Catheters IV [facility]from [facility] Saline Lock Urinary Cath still in place: No Assessment/Plan Problems: (1) Status post lumbar discectomy Status: Acute Comment: She is recuperating but a little bit slowly. I concur with having her go to the acute rehab unit for a week of therapy which will get her fully operational. The surgery appears to be a nominal success (2) Diabetes mellitus type 2 in obese Status: Chronic Comment: Adequate control of sugars Subjective 24 Hr Interval Summary Free Text/Dictation Patient sleeping in bed. Constitutional: improved, no complaints Eyes: no complaints ENT: no complaints Respiratory: no complaints Cardiovascular: no complaints Gastrointestinal: no complaints Musculoskeletal: back pain Exam/Review of Systems Vital Signs Vitals Vital Signs Date Time Temp Pulse Resp B/P Pulse Ox O2 Delivery O2 Flow Rate FiO2 10/12/16 07:51 98.2 79 19 119/62 98 10/11/16 20:10 Nasal Cannula 2.0 Intake and Output 10/11/16 10/11/16 10/12/16 15:00 23:00 07:00 Intake Total 900 ml 700 ml Output Total 400 ml 500 ml Balance 500 ml 200 ml Exam Easily aroused fully oriented Neck: non-tender, supple Respiratory: clear to auscultation, normal air movement Cardiovascular: nl pulses, regular rate and rhythm Results Result Diagram: 10/12/16 0435 10/12/16 0435 Results 24 hrs Laboratory Tests Test 10/11/16 17:33 10/11/16 20:22 10/12/16 04:35 10/12/16 08:15 Bedside Glucose 100 136 107 White Blood Count 11.8 H Red Blood Count 3.42 L Hemoglobin 9.2 L Hematocrit 29.9 L Mean Corpuscular Volume 87.4 Mean Corpuscular Hemoglobin 26.9 L Mean Corpuscular Hemoglobin Concent 30.8 L Red Cell Distribution Width 16.2 H Platelet Count 258 Mean Platelet Volume 10.6 H Neutrophils % 72.8 Lymphocytes % 18.6 Monocytes % 6.5 Eosinophils % 1.6 Basophils % 0.2 Nucleated Red Blood Cells % 0.0 Neutrophils # 8.6 H Lymphocytes # 2.2 Monocytes # 0.8 Eosinophils # 0.2 Basophils # 0.0 Nucleated Red Blood Cells # 0.0 Sodium Level 139 Potassium Level 3.8 Chloride Level 106 Carbon Dioxide Level 25 Anion Gap 12 Blood Urea Nitrogen 15 Creatinine 0.81 Glucose Level 137 Calcium Level 8.8 Magnesium Level 1.8 Test 10/12/16 11:59 10/12/16 12:27 Bedside Glucose 225 H 209 Medications Medications Current Medications Potassium Chloride/Sodium Chloride (1/2 NS + KCl 20 Meq) 1,000 ml @ 100 mls/hr Q10H IV Last administered on 10/11/16 03:42; Admin Dose 100 MLS/HR; Start at 12:16 Hydromorphone HCl (Dilaudid) 0.2 mg Q1H PRN IV BREAKTHROUGH PAIN; Start at 12:30 Ondansetron HCl (Zofran Inj) 4 mg Q6H PRN IV NAUSEA AND/OR VOMITING; Start at 12:30 Bisacodyl (Dulcolax Supp) 10 mg DAILY PRN [place] CONSTIPATION; Start 10/09/16 at 12 :30 Docusate Sodium (Colace) 100 mg BID PO Last administered on 10/12/16 08:52; Admin Dose 100 MG; Start 10/09/16 at 21:00 Al Hydrox/Mg Hydrox/Simethicone (Mag-Al Plus) 15 ml Q6H PRN PO CONSTIPATION/ DYSPEPSIA; Start 10/09/16 at 12:30 Acetaminophen (Tylenol Tab) 650 mg Q4H PRN PO GONZALEZ OR TEMP GREATER THAN 101.3F; Start 10/09/16 at 12:30 Carisoprodol (Soma) 350 mg TID PRN PO MUSCLE SPASMS; Start 10/09/16 at 12:30 Phenol (Cepastat Lozenge) 1 lozenge PRN PRN MT SORE THROAT; Start 10/09/16 at 12:30 Diphenhydramine HCl (Benadryl) 25 mg Q6H PRN IV ITCHING; Start 10/09/16 at 12: 30 Naloxone HCl (Narcan) 0.2 mg Q2M PRN IV RR 8 BREATHS/MIN OR LESS; Start at 12:30 Latanoprost (Xalatan) 1 drop QHS BOTH EYES Last administered on 10/11/16 20:33 ; Admin Dose 1 DROP; Start 10/09/16 at 21:00 Mirtazapine (Remeron) 15 mg HS PO Last administered on 10/11/16 20:32; Admin Dose 15 MG; Start 10/09/16 at 21:00 Topiramate (Topamax) 100 mg BID PO Last administered on 10/12/16 08:52; Admin Dose 100 MG; Start 10/09/16 at 21:00 Venlafaxine HCl (Effexor Xr) 150 mg DAILY PO Last administered on 10/12/16 08: 52; Admin Dose 150 MG; Start 10/10/16 at 09:00 Atorvastatin Calcium (Lipitor) 40 mg HS PO Last administered on 10/11/16 20:32 ; Admin Dose 40 MG; Start 10/09/16 at 21:00 Diagnostic Test (Pha) (Accu-Chek) 1 ea 02 XX ; Start 10/10/16 at 02:00 Miscellaneous Information 1 ea NOTE XX ; Start 10/10/16 at 09:00 Glucose (Glutose) 15 gm Q15M PRN PO DECREASED GLUCOSE; Start 10/10/16 at 09:00 Glucose (Glutose) 22.5 gm Q15M PRN PO DECREASED GLUCOSE; Start 10/10/16 at 09: 00 Dextrose (D50w Syringe) 25 ml Q15M PRN IV DECREASED GLUCOSE; Start 10/10/16 at 09:00 Dextrose (D50w Syringe) 50 ml Q15M PRN IV DECREASED GLUCOSE; Start 10/10/16 at 09:00 Glucagon (Glucagen) 1 mg Q15M PRN IM DECREASED GLUCOSE; Start 10/10/16 at 09:00 Glucose (Glutose) 15 gm Q15M PRN BUCCAL DECREASED GLUCOSE; Start 10/10/16 at 09 :00 Linagliptin (Tradjenta) 5 mg DAILY PO Last administered on 10/12/16 08:52; Admin Dose 5 MG; Start 10/10/16 at 10:00 Oxycodone/ Acetaminophen (Endocet (10/ 325)) 1 tab Q4H PRN PO PAIN LEVEL 1-5 Last administered on 10/11/16 20:50; Admin Dose 1 TAB; Start 10/11/16 at 08:30 Oxycodone/ Acetaminophen (Endocet (10/ 325)) 2 tab Q4H PRN PO PAIN LEVEL 6-10 Last administered on 10/12/16t 08:53; Admin Dose 2 TAB; Start 10/11/16 at 08:30 RAMIREZ GAINES MD Oct 12, 2016 13:16
[2016-10-12 19:43] VITALS: BP 112/55; RESP 20
[2016-10-12] MEDS: MIRTAZAPINE 15 MG TAB PO SCH (20:52)
[2016-10-12] MEDS: ATORVASTATIN 40 MG TAB PO SCH (20:52)
[2016-10-12] MEDS: LATANOPROST 0.005% 2.5 ML OPH BOTH EYES SCH (20:52)
[2016-10-12] MEDS: OXYCODONE/ACETAMINOPHEN (10/325) TAB PO PRN (22:17)
[2016-10-13] MEDS: ACCU-CHEK XX SCH (01:20)
[2016-10-13] MEDS: 1/2 NS + KCL 20 MEQ 1,000 ML IV SCH (06:16)
[2016-10-13] MEDS: LEVOTHYROXINE 75 MCG TAB PO SCH (06:18)
[2016-10-13] MEDS: INSULIN ASPART [NOVOLOG] 3 ML PEN SC SCH (07:50)
[2016-10-13 08:08] VITALS: BP 118/57; RESP 19
[2016-10-13] MEDS: metFORMIN (XR) 500 MG TAB PO SCH (08:15)
[2016-10-13] MEDS: GLIMEPIRIDE 4 MG TAB PO SCH (08:15)
[2016-10-13] MEDS: DOCUSATE SODIUM 100 MG CAP PO SCH (08:16)
[2016-10-13] MEDS: VENLAFAXINE (XR) 75 MG CAP PO SCH (08:16)
[2016-10-13] MEDS: LINAGLIPTIN 5 MG TABLET PO SCH (08:16)
[2016-10-13] MEDS: TOPIRAMATE 100 MG TAB PO SCH (08:16)
[2016-10-13] MEDS ORDERED: VITAMIN A & D 5 GM OINT PACKET TOP ONE (08:29)
--- NOTE | 2016-10-13 11:21 | DS ---
DATE OF ADMISSION: 10/09/2016 DATE OF DISCHARGE: 10/13/2016 ADMITTING DIAGNOSIS: Lumbar spondylolisthesis. DISCHARGE DIAGNOSIS: Lumbar spondylolisthesis. PROCEDURE: The patient was taken to the operating room on October 09 and underwent L4-L5 decompress ion and instrumented fusion. HOSPITAL COURSE: The patient was admitted to the orthopedic rodriges after undergoing the above procedu re. Initially, her blood pressure was low, and therefore, therapy could not be started until postop erative day #1. After this, she was doing well and ultimately deemed stable for discharge to acute rehabilitation. Dictated By: CARLITOS JONES/ANTHONY Conf#: [id number] DID#: [id number]
== END 2016-10-13 12:45 | DRG 460 ==
LOC: REC 09:03 → MS1 18:40
PROVIDERS: ADMIT Specialist; ATTEND Specialist
PROC: 0SG0071 Fusion of Lumbar Vertebral Joint with Autologous Tissue Substitute, Posterior Approach, Posterior Column, Open Approach (ICD-10-PCS; 2016-10-09)
PROC: 0ST20ZZ Resection of Lumbar Vertebral Disc, Open Approach (ICD-10-PCS; 2016-10-09)
PROC: 07DR3ZZ Extraction of Iliac Bone Marrow, Percutaneous Approach (ICD-10-PCS; 2016-10-09)
PROC: 0SG00AJ Fusion of Lumbar Vertebral Joint with Interbody Fusion Device, Posterior Approach, Anterior Column, Open Approach (ICD-10-PCS; principal; 2016-10-09 12:00)
DX: M43.16 Spondylolisthesis, lumbar region (principal); I95.9 Hypotension, unspecified; M48.06 Spinal stenosis, lumbar region; M51.16 Intervertebral disc disorders with radiculopathy, lumbar region; F34.1 Dysthymic disorder; H40.9 Unspecified glaucoma; E03.9 Hypothyroidism, unspecified; E11.9 Type 2 diabetes mellitus without complications; F41.9 Anxiety disorder, unspecified; E78.5 Hyperlipidemia, unspecified; Z79.84 Long term (current) use of oral hypoglycemic drugs
CPT/HCPCS: 72114; 80048; 81003; 82962; 83735; 85025; 86850; 86900; 86901; 86920; 86999; 87086; 88304; 97116; 97162; 97530; C1713; J0131; J0690; J1100; J1170; J1644; J1815; J2250; J2310; J2370; J2405; J2710; J2765; J3010; J3480; J7040

== ENCOUNTER 2016-10-13 12:50 | Inpatient (IN) | payer MEDICARE, OTHER ==
[~2016-10-13] VITALS: Ht 172.7 cm; Wt 88.1 kg
[~2016-10-13 12:50] MED LIST changes: +CYCL-319 PO; +EMPA10TA PO; +GLIM4TAB PO; +LATA2.5D2 BOTH EYES; +LEVO75TA65 PO; +METF500T3 PO; +MIRT15TA PO; +OXYC-209 PO; -POLYMYXIN/BACITRACIN 1L IRRIG IRR ONE; +SAXA5TAB2 PO; +SIMV40TA2 PO; +TOPI-25 PO; +VENL150T PO; +[UNRECOGNIZED DRUG - CODE] TP
[2016-10-13] MEDS ORDERED: HYDROmorphONE 1 MG/ML SYG IV PRN (13:26)
[2016-10-13] MEDS ORDERED: BISACODYL 10 MG SUPP PR PRN ×2 (13:26→14:30)
[2016-10-13] MEDS ORDERED: DEXTROSE 50% 50 ML SYRINGE IV PRN ×2 (13:26)
[2016-10-13] MEDS ORDERED: GLUCOSE GEL 15 GRAM TUBE BUCCAL PRN (13:26)
[2016-10-13] MEDS ORDERED: OXYCODONE/ACETAMINOPHEN (10/325) TAB PO PRN (13:26)
[2016-10-13] MEDS ORDERED: CARISOPRODOL 350 MG TAB PO PRN (13:26)
[2016-10-13] MEDS ORDERED: ACETAMINOPHEN 325 MG TAB PO PRN ×2 (13:26→14:30)
[2016-10-13] MEDS ORDERED: NALOXONE (0.4 MG/ML) INJ IV PRN (13:26)
[2016-10-13] MEDS ORDERED: GLUCOSE GEL 15 GRAM TUBE PO PRN ×2 (13:26)
[2016-10-13] MEDS ORDERED: AL HYDROX/MG HYDROX/SIMETH 30 ML CUP PO PRN (13:26)
[2016-10-13] MEDS ORDERED: ZOLPIDEM 5 MG TAB PO PRN (13:26)
[2016-10-13] MEDS ORDERED: CEPASTAT LOZENGE MT PRN (13:26)
[2016-10-13] MEDS ORDERED: ONDANSETRON 4 MG INJ IV PRN (13:26)
[2016-10-13] MEDS ORDERED: GLUCAGON 1 MG INJ IM PRN (13:26)
[2016-10-13 13:47] VITALS: BP 112/58; PULSE 78; RESP 18
[2016-10-13] MEDS ORDERED: LACTULOSE 30ML CUP PO PRN (14:30)
[2016-10-13] MEDS ORDERED: MAGNESIUM HYDROXIDE 30ML CUP PO PRN (14:30)
[2016-10-13] MEDS: OXYCODONE/ACETAMINOPHEN (10/325) TAB PO PRN ×2 (16:56→20:25)
[2016-10-13] MEDS: GLIMEPIRIDE 4 MG TAB PO SCH (16:59)
[2016-10-13] MEDS: metFORMIN (XR) 500 MG TAB PO SCH (16:59)
[2016-10-13] MEDS: INSULIN ASPART [NOVOLOG] 3 ML PEN SC SCH ×2 (17:13→21:00)
[2016-10-13 19:18] LABS: ADD UMIC NO; UR BILIRUBIN (Dip) NEGATIVE (NEGATIVE); UR BLOOD (Dip) NEGATIVE (NEGATIVE); UR CLARITY CLEAR (CLEAR); UR COLOR LT. YELLOW (YELLOW); UR KETONES (Dip) NEGATIVE (NEGATIVE); UR LEUKOCYTE ESTERASE (Dip) NEGATIVE (NEGATIVE); UR NITRITE (Dip) NEGATIVE (NEGATIVE); UR TOTAL PROTEIN (Dip) NEGATIVE (NEGATIVE); UR UROBILINOGEN (Dip) 0.2 E.U./dL (0.1-1.0)
[2016-10-13] MEDS: DOCUSATE SODIUM 100 MG CAP PO SCH (20:25)
[2016-10-13] MEDS: TOPIRAMATE 100 MG TAB PO SCH (20:25)
[2016-10-13] MEDS: ATORVASTATIN 40 MG TAB PO SCH (20:25)
[2016-10-13] MEDS: SENNA TAB PO SCH (20:25)
[2016-10-13] MEDS: MIRTAZAPINE 15 MG TAB PO SCH (20:25)
[2016-10-13 20:44] VITALS: BP 139/67; RESP 18
[2016-10-13] MEDS ORDERED: DOCUSATE SODIUM 100 MG CAP PO SCH (21:00)
[2016-10-13] MEDS: LATANOPROST 0.005% 2.5 ML OPH BOTH EYES SCH (21:08)
[2016-10-14] MEDS: ACCU-CHEK XX SCH (02:00)
[2016-10-14] MEDS: LEVOTHYROXINE 75 MCG TAB PO SCH (07:18)
[2016-10-14] MEDS: INSULIN ASPART [NOVOLOG] 3 ML PEN SC SCH ×4 (07:35→20:39)
[2016-10-14 07:38] LABS: ADD SCAN DIFF NO
[2016-10-14 07:45] LABS: BASOPHILS % 0.3 % (0.0-2.0); EOSINOPHILS # 0.4 10^3/ul (0.0-0.5); EOSINOPHILS % 3.9 % (0.0-7.0); HEMATOCRIT 30.7 % (37.0-47.0); HEMOGLOBIN 9.5 g/dl (12.0-16.0); LYMPHOCYTES # 2.5 10^3/ul (0.8-2.9); LYMPHOCYTES % 26.3 % (15.0-51.0); MEAN CORPUSCULAR HEMOGLOBIN 26.7 pg (29.0-33.0); MEAN CORPUSCULAR HGB CONC 30.9 g/dl (32.0-37.0); MEAN CORPUSCULAR VOLUME 86.2 fl (82.0-101.0); MEAN PLATELET VOLUME 10.3 fl (7.4-10.4); MONOCYTE # 0.6 10^3/ul (0.3-0.9); MONOCYTES % 6.6 % (0.0-11.0); NEUTROPHIL # 5.9 10^3/ul (1.6-7.5); NEUTROPHILS % 62.4 % (39.0-77.0); PLATELET COUNT 272 10^3/UL (140-415); RED BLOOD COUNT 3.56 10^6/ul (4.20-5.40); RED CELL DISTRIBUTION WIDTH 15.9 % (11.5-14.5); WHITE BLOOD COUNT 9.5 10^3/ul (4.8-10.8)
[2016-10-14] MEDS: metFORMIN (XR) 500 MG TAB PO SCH ×2 (08:35→18:26)
[2016-10-14] MEDS: TOPIRAMATE 100 MG TAB PO SCH ×2 (08:35→20:39)
[2016-10-14] MEDS: VENLAFAXINE (XR) 75 MG CAP PO SCH (08:36)
[2016-10-14] MEDS: DOCUSATE SODIUM 100 MG CAP PO SCH ×2 (08:36→20:39)
[2016-10-14] MEDS: GLIMEPIRIDE 4 MG TAB PO SCH ×3 (08:37→21:12)
[2016-10-14] MEDS: LINAGLIPTIN 5 MG TABLET PO SCH (08:39)
[2016-10-14 08:52] LABS: ALBUMIN 3.1 g/dl (3.3-4.9); POTASSIUM 3.6 mmol/L (3.5-5.1)
[2016-10-14 08:55] LABS: ALBUMIN/GLOBULIN RATIO 0.81; BILIRUBIN,INDIRECT 0.1 mg/dl (0-1.1); BILIRUBIN,TOTAL 0.1 mg/dl (0.2-1.3); CALCIUM 8.9 mg/dl (8.4-10.2); CREATININE 0.7 mg/dl (0.44-1.00); TOTAL PROTEIN 6.9 g/dl (6.1-8.1)
--- NOTE | 2016-10-14 09:14 | CONS ---
DATE OF ADMISSION: 10/13/2016 DATE OF CONSULTATION: 10/14/2016 TYPE OF CONSULTATION: Rehabilitation postadmission physician evaluation. REHABILITATION IMPAIRMENT CATEGORY: Lumbosacral radiculopathy with lumbar spondylolisthesis, status post decompressive laminectomy and fusion on 10/09/2016. ACTIVE COMORBIDITIES: 1. Acute pain syndrome. 2. Diabetes mellitus type 2. 3. Left knee degenerative joint disease. 4. Impairments in self-care and mobility. HISTORY OF PRESENT ILLNESS: The patient is a pleasant 71-year-old female with a history of signific ant radiating low back pain due to lumbosacral radiculopathy in addition to spondylolisthesis. Catrachita ent underwent decompressive laminectomy and fusion on 10/09/2016. The patient's postoperative cours e has been notable for significant pain in addition to impairments in self-care and mobility as comp ared to baseline. The patient has been cleared to transfer to the rehabilitation unit for [facility] interdisciplinary rehab care. FUNCTIONAL HISTORY: Prior to recent events, she was independent in self-care tasks and mobility. C urrently, the patient requires moderate assist for self-care and mobility tasks. I have reviewed the preadmission screen and the patient's current functional status is consistent wi th the preadmission screen. SOCIAL HISTORY: The patient lives at home and hopes to return there upon discharge. PAST MEDICAL HISTORY 1. Lumbosacral radiculopathy. 2. Diabetes mellitus. CURRENT MEDICATIONS: 1. Lipitor 40 mg p.o. at bedtime. 2. Soma 30 mg p.o. t.i.d. p.r.n. 3. Insulin sliding scale. 4. Amaryl 4 mg b.i.d. 5. Dilaudid p.r.n. 7. Xalatan eye drops. 8. Synthroid 75 mcg p.o. q.a.m. 9. Tradjenta 5 mg p.o. daily. 10. Glucophage-XR 500 mg b.i.d. 11. Remeron 15 mg p.o. at bedtime. 12. Endocet p.r.n. 13. Topamax 100 mg b.i.d. 14. Effexor 150 p.o. daily. 16. Ambien p.r.n. ALLERGIES: THE PATIENT WITH NO KNOWN DRUG ALLERGIES. PHYSICAL EXAMINATION: VITAL SIGNS: The patient is currently afebrile with stable vital signs. ENT: The extraocular motions are intact. Oropharynx is clear. NECK: Supple. LUNGS: Clear anteriorly. CARDIAC: S1, S2. ABDOMEN: Soft, nontender, positive bowel sounds. NEUROLOGIC: She is awake and alert and oriented x3. She will follow simple 1-step commands. She d emonstrates antigravity strength in bilateral upper extremity and lower extremity. She demonstrates impaired dynamic balance. PLAN: The patient has been admitted for comprehensive interdisciplinary acute rehab and is anticipa homero to tolerate 3 hours of daily therapy in divided doses for at least 5/7 days a week. The treatme nt plan will include: 1. Physical therapy to focus on bed mobility, transfers, and household ambulation with the goal of having the patient reach standby assist level. 2. Occupational therapy to focus on hygiene, grooming, dressing, bathing, and toileting activities with the goal of having the patient reach standby assist level. 3. Rehabilitation nursing for carryover of therapeutic interventions, the goal of continent of anil l and bladder, the goal of pain adequately managed on oral medications. REHABILITATION BARRIER: Pain. INTERVENTION FOR BARRIER: Interdisciplinary approach. ESTIMATED LENGTH OF STAY: 14 days. DISPOSITION GOAL: Home. I acknowledge that I performed a full physical examination on this patient within 24 hours of admiss ion to the rehabilitation unit. I believe the patient is a good candidate for comprehensive interdi sciplinary rehab care and is anticipated to make reasonable goals in a reasonable period of time as outlined above. Dictated By: SADIE ARRIOLA/ANTHONY Conf#: [id number] DID#: [id number]
[2016-10-14 12:19] VITALS: BP 109/53; RESP 20
[2016-10-14] MEDS: ATORVASTATIN 40 MG TAB PO SCH (20:38)
[2016-10-14] MEDS: MIRTAZAPINE 15 MG TAB PO SCH (20:38)
[2016-10-14] MEDS: OXYCODONE/ACETAMINOPHEN (10/325) TAB PO PRN (20:39)
[2016-10-14] MEDS: LATANOPROST 0.005% 2.5 ML OPH BOTH EYES SCH (20:39)
[2016-10-14] MEDS: SENNA TAB PO SCH (20:39)
[2016-10-14 20:48] VITALS: BP 118/56; RESP 18
[2016-10-15] MEDS: OXYCODONE/ACETAMINOPHEN (10/325) TAB PO PRN ×3 (00:18→19:27)
[2016-10-15] MEDS: ACCU-CHEK XX SCH (02:00)
[2016-10-15] MEDS: LEVOTHYROXINE 75 MCG TAB PO SCH (06:48)
[2016-10-15 07:30] VITALS: BP 109/58; RESP 18
[2016-10-15] MEDS: INSULIN ASPART [NOVOLOG] 3 ML PEN SC SCH ×4 (07:35→20:56)
[2016-10-15] MEDS: metFORMIN (XR) 500 MG TAB PO SCH ×2 (08:09→17:03)
[2016-10-15] MEDS: GLIMEPIRIDE 4 MG TAB PO SCH ×2 (08:09→17:03)
[2016-10-15] MEDS: LINAGLIPTIN 5 MG TABLET PO SCH (08:10)
[2016-10-15] MEDS: DOCUSATE SODIUM 100 MG CAP PO SCH ×2 (08:10→20:55)
[2016-10-15] MEDS: TOPIRAMATE 100 MG TAB PO SCH ×2 (08:10→20:55)
[2016-10-15] MEDS: VENLAFAXINE (XR) 75 MG CAP PO SCH (08:10)
--- NOTE | 2016-10-15 13:46 | HP ---
Date/Time of Note Date/Time of Note DATE: 10/15/16 TIME: 13:41 Assessment/Plan VTE Prophylaxis VTE Prophylaxis Intervention: heparin Lines/Catheters IV [facility] Saline Lock Urinary Cath still in place: No Assessment/Plan Problems: (1) Status post lumbar discectomy Status: Acute Comment: Recuperating postoperatively now going through rehab in an organized fashion (2) Glaucoma Status: Chronic Comment: Continue outpatient therapeutic Qualifiers: Glaucoma type: unspecified type Laterality: bilateral Qualified Code: H40.9 - Glaucoma of both eyes, unspecified glaucoma (3) Hypothyroidism (acquired) Status: Chronic Comment: Continue replacement (4) E. coli UTI (urinary tract infection) Status: Acute Comment: Pansensitive bacteria treat with antibiotics times 5 days (5) Diabetes mellitus type 2 in obese Status: Chronic Comment: Well-controlled (6) Dysthymia (or depressive neurosis) Status: Chronic Comment: Continue treatment HPI/ROS Admit Date/Time Admit Date/Time Oct 13, 2016 at 12:50 Hx of Present Illness 71-year-old female transferred from the acute care hospital to the acute rehabilitation unit to recover after spinal surgery. She had a long history of lumbar spinal stenosis with sciatica and radiculopathy. She had failed all conservative attempts at treatment and ultimately agreed to have surgery. She is now had successful surgery and is attempting to get herself up and about and rehabilitated. ROS Constitutional: no complaints Eyes: no complaints ENT: no complaints Respiratory: no complaints Cardiovascular: no complaints Gastrointestinal: no complaints Genitourinary: no complaints Musculoskeletal: back pain, other (Left knee pain) Skin: no complaints Neurologic: no complaints Endocrine: no complaints Lymphatic: no complaints PMH/Family/Social Past Medical History Glaucoma; dysthymia with anxiety; osteoarthrosis Medical History: diabetes, hypothyroid Past Surgical History Status post breast biopsy 2; immediately status post lumbar laminectomy Family History Significant Family History: diabetes Social History Alcohol Use: none Smoking Status: Never smoker Drug Use: none Exam/Review of Systems Vital Signs Vitals Vital Signs Date Time Temp Pulse Resp B/P Pulse Ox O2 Delivery O2 Flow Rate FiO2 10/15/16 07:30 97.5 62 18 109/58 99 10/13/16 13:47 Room Air Intake and Output 10/14/16 10/14/16 10/15/16 15:00 23:00 07:00 Intake Total 300 ml Output Total 400 ml 350 ml 1250 ml Balance -400 ml -350 ml -950 ml Exam Constitutional: alert, oriented Head: atraumatic Eyes: EOMI, nl conjunctiva, nl lids ENMT: nl lips & teeth Neck: non-tender, supple Respiratory: clear to auscultation, normal air movement Cardiovascular: nl pulses, regular rate and rhythm Gastrointestinal: nl liver, spleen, non-tender, soft Labs Result Diagram: 10/14/1670410/14/16704 Medications Medications Current Medications Hydromorphone HCl (Dilaudid) 0.2 mg Q1H PRN IV BREAKTHROUGH PAIN; Start at 13:26 Ondansetron HCl (Zofran Inj) 4 mg Q6H PRN IV NAUSEA AND/OR VOMITING; Start at 13:26 Bisacodyl (Dulcolax Supp) 10 mg DAILY PRN [place] CONSTIPATION; Start 10/13/16 at 13 :26 Docusate Sodium (Colace) 100 mg BID PO Last administered on 10/15/16 08:10; Admin Dose 100 MG; Start 10/13/16 at 13:26 Al Hydrox/Mg Hydrox/Simethicone (Mag-Al Plus) 15 ml Q6H PRN PO CONSTIPATION/ DYSPEPSIA; Start 10/13/16 at 13:26 Acetaminophen (Tylenol Tab) 650 mg Q4H PRN PO GONZALEZ OR TEMP GREATER THAN 101.3F; Start 10/13/16 at 13:26 Carisoprodol (Soma) 350 mg TID PRN PO MUSCLE SPASMS; Start 10/13/16 at 13:26 Phenol (Cepastat Lozenge) 1 lozenge PRN PRN MT SORE THROAT; Start 10/13/16 at 13:26 Diphenhydramine HCl (Benadryl) 25 mg Q6H PRN IV ITCHING; Start 10/13/16 at 13: 26 Naloxone HCl (Narcan) 0.2 mg Q2M PRN IV RR 8 BREATHS/MIN OR LESS; Start at 13:26 Latanoprost (Xalatan) 1 drop QHS BOTH EYES Last administered on 10/14/16 20:39 ; Admin Dose 1 DROP; Start 10/13/16 at 13:26 Mirtazapine (Remeron) 15 mg HS PO Last administered on 10/14/16 20:38; Admin Dose 15 MG; Start 10/13/16 at 13:26 Topiramate (Topamax) 100 mg BID PO Last administered on 10/15/16 08:10; Admin Dose 100 MG; Start 10/13/16 at 13:26 Venlafaxine HCl (Effexor Xr) 150 mg DAILY PO Last administered on 10/15/16 08: 10; Admin Dose 150 MG; Start 10/13/16 at 13:26 Atorvastatin Calcium (Lipitor) 40 mg HS PO Last administered on 10/14/16 20:38 ; Admin Dose 40 MG; Start 10/13/16 at 13:26 Diagnostic Test (Pha) (Accu-Chek) 1 ea 02 XX ; Start 10/13/16 at 13:26 Miscellaneous Information 1 ea NOTE XX ; Start 10/13/16 at 13:26 Glucose (Glutose) 15 gm Q15M PRN PO DECREASED GLUCOSE; Start 10/13/16 at 13:26 Glucose (Glutose) 22.5 gm Q15M PRN PO DECREASED GLUCOSE; Start 10/13/16 at 13: 26 Dextrose (D50w Syringe) 25 ml Q15M PRN IV DECREASED GLUCOSE; Start 10/13/16 at 13:26 Dextrose (D50w Syringe) 50 ml Q15M PRN IV DECREASED GLUCOSE; Start 10/13/16 at 13:26 Glucagon (Glucagen) 1 mg Q15M PRN IM DECREASED GLUCOSE; Start 10/13/16 at 13:26 Glucose (Glutose) 15 gm Q15M PRN BUCCAL DECREASED GLUCOSE; Start 10/13/16 at 13 :26 Linagliptin (Tradjenta) 5 mg DAILY PO Last administered on 10/15/16 08:10; Admin Dose 5 MG; Start 10/13/16 at 13:26 Oxycodone/ Acetaminophen (Endocet (10/ 325)) 1 tab Q4H PRN PO PAIN LEVEL 1-5 Last administered on 10/15/16 11:18; Admin Dose 1 TAB; Start 10/13/16 at 13:26 Oxycodone/ Acetaminophen (Endocet (10/ 325)) 2 tab Q4H PRN PO PAIN LEVEL 6-10; Start 10/13/16 at 13:26 Senna (Senokot) 1 tab HS PO Last administered on 10/14/16t 20:39; Admin Dose 1 TAB; Start 10/13/16 at 21:00 Acetaminophen (Tylenol Tab) 650 mg Q4H PRN PO PAIN; Start 10/13/16 at 14:30 Bisacodyl (Dulcolax Supp) 10 mg DAILY PRN [place] CONSTIPATION; Start 10/13/16 at 14 :30 Magnesium Hydroxide (Milk Of Mag) 30 ml BID PRN PO CONSTIPATION; Start at 14:30 Lactulose (Enulose) 20 gm DAILY PRN PO CONSTIPATION; Start 10/13/16 at 14:30 Ciprofloxacin (Cipro) 500 mg BID@06,18 PO ; Start 10/15/16 at 18:00; Stop at 17:59 RAMIREZ GAINES MD Oct 15, 2016 13:46
[2016-10-15] MEDS: CIPROFLOXACIN 500 MG TAB PO SCH (17:06)
[2016-10-15 20:22] VITALS: BP 112/57; RESP 20
[2016-10-15] MEDS: LATANOPROST 0.005% 2.5 ML OPH BOTH EYES SCH (20:55)
[2016-10-15] MEDS: ATORVASTATIN 40 MG TAB PO SCH (20:55)
[2016-10-15] MEDS: MIRTAZAPINE 15 MG TAB PO SCH (20:55)
[2016-10-15] MEDS: SENNA TAB PO SCH (21:00)
[2016-10-16] MEDS: ACCU-CHEK XX SCH (02:00)
[2016-10-16] MEDS: LEVOTHYROXINE 75 MCG TAB PO SCH (06:31)
[2016-10-16] MEDS: CIPROFLOXACIN 500 MG TAB PO SCH ×2 (06:31→18:19)
[2016-10-16] MEDS: INSULIN ASPART [NOVOLOG] 3 ML PEN SC SCH ×4 (07:23→21:00)
[2016-10-16 07:30] VITALS: BP 108/55; RESP 18
[2016-10-16] MEDS: metFORMIN (XR) 500 MG TAB PO SCH ×2 (09:05→17:40)
[2016-10-16] MEDS: GLIMEPIRIDE 4 MG TAB PO SCH ×2 (09:05→17:41)
[2016-10-16] MEDS: TOPIRAMATE 100 MG TAB PO SCH ×2 (09:05→20:08)
[2016-10-16] MEDS: LINAGLIPTIN 5 MG TABLET PO SCH (09:05)
[2016-10-16] MEDS: OXYCODONE/ACETAMINOPHEN (10/325) TAB PO PRN ×3 (09:05→21:15)
[2016-10-16] MEDS: VENLAFAXINE (XR) 75 MG CAP PO SCH (09:06)
[2016-10-16] MEDS: DOCUSATE SODIUM 100 MG CAP PO SCH ×2 (09:06→20:08)
--- NOTE | 2016-10-16 12:43 | CONS ---
Date/Time of Note Date/Time of Note DATE: 10/16/16 TIME: 12:42 Consult Date/Type/Reason Admit Date/Time Oct 13, 2016 at 12:50 Initial Consult Date Subjective Overall improving Objective Vital Signs Date Time Temp Pulse Resp B/P Pulse Ox O2 Delivery O2 Flow Rate FiO2 10/16/16 07:30 98.2 66 18 108/55 98 10/13/16 13:47 Room Air Intake and Output 10/15/16 10/15/16 10/16/16 14:59 22:59 06:59 Intake Total 1300 ml 650 ml Output Total 400 ml 400 ml Balance -400 ml 900 ml 650 ml INTERDISCIPLINARY TEAM CONFERENCE BOWEL- Cont BLADDER-Cont SKIN- intact OT- DRESSING-min BATHING-min TOILETING-min PT- BED MOBILITY-cga/min TRANSFERS-min AMBULATION-min 120 feet A/P- Interdisciplinary team conference held today. Please see interdisciplinary sheet. Working toward [email or web address] on 10/24 with post discharge follow up of physical therapy, occupational therapy. Results/Medications Result Diagram: 10/14/1670410/14/16704 Results 24 hrs Laboratory Tests Test 10/15/16 16:55 10/15/16 20:21 10/16/16 07:12 10/16/16 12:04 Bedside Glucose 121 126 110 150 Medications Current Medications Hydromorphone HCl (Dilaudid) 0.2 mg Q1H PRN IV BREAKTHROUGH PAIN; Start at 13:26 Ondansetron HCl (Zofran Inj) 4 mg Q6H PRN IV NAUSEA AND/OR VOMITING; Start at 13:26 Bisacodyl (Dulcolax Supp) 10 mg DAILY PRN [place] CONSTIPATION; Start 10/13/16 at 13 :26 Docusate Sodium (Colace) 100 mg BID PO Last administered on 10/16/16t 09:06; Admin Dose 100 MG; Start 10/13/16 at 13:26 Al Hydrox/Mg Hydrox/Simethicone (Mag-Al Plus) 15 ml Q6H PRN PO CONSTIPATION/ DYSPEPSIA; Start 10/13/16 at 13:26 Acetaminophen (Tylenol Tab) 650 mg Q4H PRN PO GONZALEZ OR TEMP GREATER THAN 101.3F; Start 10/13/16 at 13:26 Carisoprodol (Soma) 350 mg TID PRN PO MUSCLE SPASMS; Start 10/13/16 at 13:26 Phenol (Cepastat Lozenge) 1 lozenge PRN PRN [place] SORE THROAT; Start 10/13/16 at 13:26 Diphenhydramine HCl (Benadryl) 25 mg Q6H PRN IV ITCHING; Start 10/13/16 at 13: 26 Naloxone HCl (Narcan) 0.2 mg Q2M PRN IV RR 8 BREATHS/MIN OR LESS; Start at 13:26 Latanoprost (Xalatan) 1 drop QHS BOTH EYES Last administered on 10/15/16 20:55 ; Admin Dose 1 DROP; Start 10/13/16 at 13:26 Mirtazapine (Remeron) 15 mg HS PO Last administered on 10/15/16 20:55; Admin Dose 15 MG; Start 10/13/16 at 13:26 Topiramate (Topamax) 100 mg BID PO Last administered on 10/16/16 09:05; Admin Dose 100 MG; Start 10/13/16 at 13:26 Venlafaxine HCl (Effexor Xr) 150 mg DAILY PO Last administered on 10/16/16 09: 06; Admin Dose 150 MG; Start 10/13/16 at 13:26 Atorvastatin Calcium (Lipitor) 40 mg HS PO Last administered on 10/15/16 20:55 ; Admin Dose 40 MG; Start 10/13/16 at 13:26 Diagnostic Test (Pha) (Accu-Chek) 1 ea 02 XX ; Start 10/13/16 at 13:26 Miscellaneous Information 1 ea NOTE XX ; Start 10/13/16 at 13:26 Glucose (Glutose) 15 gm Q15M PRN PO DECREASED GLUCOSE; Start 10/13/16 at 13:26 Glucose (Glutose) 22.5 gm Q15M PRN PO DECREASED GLUCOSE; Start 10/13/16 at 13: 26 Dextrose (D50w Syringe) 25 ml Q15M PRN IV DECREASED GLUCOSE; Start 10/13/16 at 13:26 Dextrose (D50w Syringe) 50 ml Q15M PRN IV DECREASED GLUCOSE; Start 10/13/16 at 13:26 Glucagon (Glucagen) 1 mg Q15M PRN IM DECREASED GLUCOSE; Start 10/13/16 at 13:26 Glucose (Glutose) 15 gm Q15M PRN BUCCAL DECREASED GLUCOSE; Start 10/13/16 at 13 :26 Linagliptin (Tradjenta) 5 mg DAILY PO Last administered on 10/16/16 09:05; Admin Dose 5 MG; Start 10/13/16 at 13:26 Oxycodone/ Acetaminophen (Endocet (10/ 325)) 1 tab Q4H PRN PO PAIN LEVEL 1-5 Last administered on 10/16/16 09:05; Admin Dose 1 TAB; Start 10/13/16 at 13:26 Oxycodone/ Acetaminophen (Endocet (10/ 325)) 2 tab Q4H PRN PO PAIN LEVEL 6-10; Start 10/13/16 at 13:26 Senna (Senokot) 1 tab HS PO Last administered on 10/14/16 20:39; Admin Dose 1 TAB; Start 10/13/16 at 21:00 Acetaminophen (Tylenol Tab) 650 mg Q4H PRN PO PAIN; Start 10/13/16 at 14:30 Bisacodyl (Dulcolax Supp) 10 mg DAILY PRN [place] CONSTIPATION; Start 10/13/16 at 14 :30 Magnesium Hydroxide (Milk Of Mag) 30 ml BID PRN PO CONSTIPATION; Start at 14:30 Lactulose (Enulose) 20 gm DAILY PRN PO CONSTIPATION; Start 10/13/16 at 14:30 Ciprofloxacin (Cipro) 500 mg BID@06,18 PO Last administered on 10/16/16 06:31; Admin Dose 500 MG; Start 10/15/16 at 18:00; Stop 10/20/16 at 17:59 SADIE PERSAUD MD Oct 16, 2016 12:43
[2016-10-16] MEDS ORDERED: HYDROCODONE/APAP (10/325) TAB PO ONE (15:30)
[2016-10-16] MEDS ORDERED: traMADol 50 MG TAB PO SCH (16:00)
[2016-10-16] MEDS ORDERED: ACETAMINOPHEN 325 MG TAB PO PRN (16:30)
[2016-10-16] MEDS ORDERED: MELOXICAM 7.5 MG TAB PO SCH (17:35)
[2016-10-16] MEDS: LATANOPROST 0.005% 2.5 ML OPH BOTH EYES SCH (20:08)
[2016-10-16] MEDS: MIRTAZAPINE 15 MG TAB PO SCH (20:08)
[2016-10-16] MEDS: ATORVASTATIN 40 MG TAB PO SCH (20:08)
[2016-10-16] MEDS: SENNA TAB PO SCH (20:09)
[2016-10-16 20:26] VITALS: BP 111/55; RESP 18
[2016-10-17] MEDS: ACCU-CHEK XX SCH (02:00)
[2016-10-17] MEDS: LEVOTHYROXINE 75 MCG TAB PO SCH (06:00)
[2016-10-17] MEDS: CIPROFLOXACIN 500 MG TAB PO SCH ×2 (06:00→17:49)
[2016-10-17] MEDS: INSULIN ASPART [NOVOLOG] 3 ML PEN SC SCH ×4 (07:35→21:00)
[2016-10-17 08:00] VITALS: BP 133/63; RESP 18
[2016-10-17] MEDS: metFORMIN (XR) 500 MG TAB PO SCH ×2 (08:13→17:49)
[2016-10-17] MEDS: GLIMEPIRIDE 4 MG TAB PO SCH ×2 (08:13→17:48)
[2016-10-17] MEDS: LINAGLIPTIN 5 MG TABLET PO SCH (08:14)
[2016-10-17] MEDS: TOPIRAMATE 100 MG TAB PO SCH ×2 (08:14→21:15)
[2016-10-17] MEDS: VENLAFAXINE (XR) 75 MG CAP PO SCH (08:14)
[2016-10-17] MEDS: DOCUSATE SODIUM 100 MG CAP PO SCH ×2 (08:14→21:15)
[2016-10-17] MEDS: OXYCODONE/ACETAMINOPHEN (10/325) TAB PO PRN ×2 (08:43→15:32)
[2016-10-17] MEDS ORDERED: POLYETHYLENE GLYCOL 17 GM PACKET PO SCH (09:00)
--- NOTE | 2016-10-17 12:17 | CONS ---
Date/Time of Note Date/Time of Note DATE: 10/17/16 TIME: 12:15 Consult Date/Type/Reason Admit Date/Time Oct 13, 2016 at 12:50 Subjective reports Left Knee pain Objective pulm-cta abd-soft cga ambulation Vital Signs Date Time Temp Pulse Resp B/P Pulse Ox O2 Delivery O2 Flow Rate FiO2 10/17/16 08:00 98.4 65 18 133/63 98 10/13/16 13:47 Room Air Intake and Output 10/16/16 10/16/16 10/17/16 14:59 22:59 06:59 Intake Total 960 ml 1250 ml Balance 960 ml 1250 ml Results/Medications Result Diagram: 10/14/16 0705 10/14/16 0705 Results 24 hrs Laboratory Tests Test 10/16/16 17:04 10/16/16 20:07 10/17/16 07:42 10/17/16 11:55 Bedside Glucose 130 127 92 149 Medications Current Medications Ondansetron HCl (Zofran Inj) 4 mg Q6H PRN IV NAUSEA AND/OR VOMITING; Start at 13:26 Bisacodyl (Dulcolax Supp) 10 mg DAILY PRN [place] CONSTIPATION; Start 10/13/16 at 13 :26 Docusate Sodium (Colace) 100 mg BID PO Last administered on 10/17/16 08:14; Admin Dose 100 MG; Start 10/13/16 at 13:26 Al Hydrox/Mg Hydrox/Simethicone (Mag-Al Plus) 15 ml Q6H PRN PO CONSTIPATION/ DYSPEPSIA; Start 10/13/16 at 13:26 Phenol (Cepastat Lozenge) 1 lozenge PRN PRN [place] SORE THROAT; Start 10/13/16 at 13:26 Diphenhydramine HCl (Benadryl) 25 mg Q6H PRN IV ITCHING; Start 10/13/16 at 13: 26 Naloxone HCl (Narcan) 0.2 mg Q2M PRN IV RR 8 BREATHS/MIN OR LESS; Start at 13:26 Latanoprost (Xalatan) 1 drop QHS BOTH EYES Last administered on 10/16/16 20:08 ; Admin Dose 1 DROP; Start 10/13/16 at 13:26 Mirtazapine (Remeron) 15 mg HS PO Last administered on 10/16/16 20:08; Admin Dose 15 MG; Start 10/13/16 at 13:26 Topiramate (Topamax) 100 mg BID PO Last administered on 10/17/16 08:14; Admin Dose 100 MG; Start 10/13/16 at 13:26 Venlafaxine HCl (Effexor Xr) 150 mg DAILY PO Last administered on 10/17/16 08: 14; Admin Dose 150 MG; Start 10/13/16 at 13:26 Atorvastatin Calcium (Lipitor) 40 mg HS PO Last administered on 10/16/16 20:08 ; Admin Dose 40 MG; Start 10/13/16 at 13:26 Diagnostic Test (Pha) (Accu-Chek) 1 ea 02 XX ; Start 10/13/16 at 13:26 Miscellaneous Information 1 ea NOTE XX ; Start 10/13/16 at 13:26 Glucose (Glutose) 15 gm Q15M PRN PO DECREASED GLUCOSE; Start 10/13/16 at 13:26 Glucose (Glutose) 22.5 gm Q15M PRN PO DECREASED GLUCOSE; Start 10/13/16 at 13: 26 Dextrose (D50w Syringe) 25 ml Q15M PRN IV DECREASED GLUCOSE; Start 10/13/16 at 13:26 Dextrose (D50w Syringe) 50 ml Q15M PRN IV DECREASED GLUCOSE; Start 10/13/16 at 13:26 Glucagon (Glucagen) 1 mg Q15M PRN IM DECREASED GLUCOSE; Start 10/13/16 at 13:26 Glucose (Glutose) 15 gm Q15M PRN BUCCAL DECREASED GLUCOSE; Start 10/13/16 at 13 :26 Linagliptin (Tradjenta) 5 mg DAILY PO Last administered on 10/17/16 08:14; Admin Dose 5 MG; Start 10/13/16 at 13:26 Senna (Senokot) 1 tab HS PO Last administered on 10/14/16 20:39; Admin Dose 1 TAB; Start 10/13/16 at 21:00 Bisacodyl (Dulcolax Supp) 10 mg DAILY PRN [place] CONSTIPATION; Start 10/13/16 at 14 :30 Magnesium Hydroxide (Milk Of Mag) 30 ml BID PRN PO CONSTIPATION; Start at 14:30 Lactulose (Enulose) 20 gm DAILY PRN PO CONSTIPATION; Start 10/13/16 at 14:30 Ciprofloxacin (Cipro) 500 mg BID@18 PO Last administered on 10/17/16 06:00; Admin Dose 500 MG; Start 10/15/16 at 18:00; Stop 10/20/16 at 17:59 Oxycodone/ Acetaminophen (Endocet (10/ 325)) 1 tab Q4H PRN PO PAIN Last administered on 10/17/16 08:43; Admin Dose 1 TAB; Start 10/16/16 at 16:30 Oxycodone/ Acetaminophen (Endocet (10/ 325)) 2 tab Q4H PRN PO PAIN; Start at 16:30 Acetaminophen (Tylenol Tab) 650 mg Q4H PRN PO PAIN AND OR ELEVATED TEMP; Start 10/16/16 at 16:30 Carisoprodol (Soma) 350 mg Q8H PRN PO MUSCLE SPASMS; Start 10/16/16 at 16:30 Assessment/Plan Additional Assessment/Plan Rehab- Lumbosacral radiculopathy with lumbar spondylolisthesis, status post decompressive laminectomy and fusion on 10/09/2016. Continue rehab program L knee- will order xray Acute pain syndrome. Diabetes mellitus type 2. SADIE PERSAUD MD Oct 17, 2016 12:16
--- NOTE | 2016-10-17 15:07 | RADRPT ---
PROCEDURE: XR Left Knee. CLINICAL INDICATION: Left knee pain. TECHNIQUE: 3 views. Frontal, lateral, and oblique. COMPARISON: No prior studies are available for comparison. FINDINGS: There is no fracture or dislocation. The soft tissues are normal. There are degenerative changes with small osteophytes arising from the medial and patellofemoral torrie nt compartment margins. There is no lytic or blastic lesion. There is no radiopaque foreign body. IMPRESSION: 1. Mild degenerative changes of the left knee. 2. No acute abnormality. RPTAT: QQ .Jimmie Crane MD, MD Date Time Electronically viewed and signed by .Jimmie Crane MD, MD on 10/17/2016 15:07 .R/
[2016-10-17 20:55] VITALS: BP 110/53; RESP 18
[2016-10-17] MEDS: LATANOPROST 0.005% 2.5 ML OPH BOTH EYES SCH (21:15)
[2016-10-17] MEDS: SENNA TAB PO SCH (21:15)
[2016-10-17] MEDS: ATORVASTATIN 40 MG TAB PO SCH (21:16)
[2016-10-17] MEDS: MIRTAZAPINE 15 MG TAB PO SCH (21:16)
[2016-10-18] MEDS: ACCU-CHEK XX SCH (02:00)
[2016-10-18] MEDS: LEVOTHYROXINE 75 MCG TAB PO SCH (06:11)
[2016-10-18] MEDS: CIPROFLOXACIN 500 MG TAB PO SCH ×2 (06:11→17:33)
[2016-10-18] MEDS: INSULIN ASPART [NOVOLOG] 3 ML PEN SC SCH ×4 (07:35→20:44)
[2016-10-18] MEDS: OXYCODONE/ACETAMINOPHEN (10/325) TAB PO PRN ×2 (07:42→20:47)
[2016-10-18 07:45] VITALS: BP 114/57; RESP 18
[2016-10-18] MEDS: TOPIRAMATE 100 MG TAB PO SCH ×2 (08:45→20:40)
[2016-10-18] MEDS: GLIMEPIRIDE 4 MG TAB PO SCH ×2 (08:45→17:33)
[2016-10-18] MEDS: LINAGLIPTIN 5 MG TABLET PO SCH (08:45)
[2016-10-18] MEDS: VENLAFAXINE (XR) 75 MG CAP PO SCH (08:45)
[2016-10-18] MEDS: metFORMIN (XR) 500 MG TAB PO SCH ×2 (08:45→17:33)
[2016-10-18] MEDS: DOCUSATE SODIUM 100 MG CAP PO SCH ×2 (08:46→20:39)
--- NOTE | 2016-10-18 11:07 | CONS ---
Date/Time of Note Date/Time of Note DATE: 10/18/16 TIME: 11:00 Consult Date/Type/Reason Admit Date/Time Oct 13, 2016 at 12:50 Subjective Patient without new complaints Objective pulm-cta abd-soft cga/sba ambulation 150 feet Vital Signs Date Time Temp Pulse Resp B/P Pulse Ox O2 Delivery O2 Flow Rate FiO2 10/18/16 07:45 98.3 61 18 114/57 98 Intake and Output 10/17/16 10/17/16 10/18/16 15:00 23:00 07:00 Intake Total 1000 ml 360 ml 240 ml Output Total 250 ml 350 ml Balance 1000 ml 110 ml -110 ml Results/Medications Result Diagram: 10/14/1670410/14/16 0705 Results 24 hrs Laboratory Tests Test 10/17/16 11:55 10/17/16 17:24 10/17/16 19:54 10/18/16 07:37 Bedside Glucose 149 108 152 97 Medications Current Medications Ondansetron HCl (Zofran Inj) 4 mg Q6H PRN IV NAUSEA AND/OR VOMITING; Start at 13:26 Bisacodyl (Dulcolax Supp) 10 mg DAILY PRN [place] CONSTIPATION; Start 10/13/16 at 13 :26 Docusate Sodium (Colace) 100 mg BID PO Last administered on 10/18/16 08:46; Admin Dose 100 MG; Start 10/13/16 at 13:26 Al Hydrox/Mg Hydrox/Simethicone (Mag-Al Plus) 15 ml Q6H PRN PO CONSTIPATION/ DYSPEPSIA; Start 10/13/16 at 13:26 Phenol (Cepastat Lozenge) 1 lozenge PRN PRN [place] SORE THROAT; Start 10/13/16 at 13:26 Diphenhydramine HCl (Benadryl) 25 mg Q6H PRN IV ITCHING; Start 10/13/16 at 13: 26 Naloxone HCl (Narcan) 0.2 mg Q2M PRN IV RR 8 BREATHS/MIN OR LESS; Start at 13:26 Latanoprost (Xalatan) 1 drop QHS BOTH EYES Last administered on 10/17/16 21:15 ; Admin Dose 1 DROP; Start 10/13/16 at 13:26 Mirtazapine (Remeron) 15 mg HS PO Last administered on 10/17/16 21:16; Admin Dose 15 MG; Start 10/13/16 at 13:26 Topiramate (Topamax) 100 mg BID PO Last administered on 10/18/16 08:45; Admin Dose 100 MG; Start 10/13/16 at 13:26 Venlafaxine HCl (Effexor Xr) 150 mg DAILY PO Last administered on 10/18/16 08: 45; Admin Dose 150 MG; Start 10/13/16 at 13:26 Atorvastatin Calcium (Lipitor) 40 mg HS PO Last administered on 10/17/16 21:16 ; Admin Dose 40 MG; Start 10/13/16 at 13:26 Diagnostic Test (Pha) (Accu-Chek) 1 ea 02 XX ; Start 10/13/16 at 13:26 Miscellaneous Information 1 ea NOTE XX ; Start 10/13/16 at 13:26 Glucose (Glutose) 15 gm Q15M PRN PO DECREASED GLUCOSE; Start 10/13/16 at 13:26 Glucose (Glutose) 22.5 gm Q15M PRN PO DECREASED GLUCOSE; Start 10/13/16 at 13: 26 Dextrose (D50w Syringe) 25 ml Q15M PRN IV DECREASED GLUCOSE; Start 10/13/16 at 13:26 Dextrose (D50w Syringe) 50 ml Q15M PRN IV DECREASED GLUCOSE; Start 10/13/16 at 13:26 Glucagon (Glucagen) 1 mg Q15M PRN IM DECREASED GLUCOSE; Start 10/13/16 at 13:26 Glucose (Glutose) 15 gm Q15M PRN BUCCAL DECREASED GLUCOSE; Start 10/13/16 at 13 :26 Linagliptin (Tradjenta) 5 mg DAILY PO Last administered on 10/18/16 08:45; Admin Dose 5 MG; Start 10/13/16 at 13:26 Senna (Senokot) 1 tab HS PO Last administered on 10/17/16 21:15; Admin Dose 1 TAB; Start 10/13/16 at 21:00 Bisacodyl (Dulcolax Supp) 10 mg DAILY PRN [place] CONSTIPATION; Start 10/13/16 at 14 :30 Magnesium Hydroxide (Milk Of Mag) 30 ml BID PRN PO CONSTIPATION; Start at 14:30 Lactulose (Enulose) 20 gm DAILY PRN PO CONSTIPATION; Start 10/13/16 at 14:30 Ciprofloxacin (Cipro) 500 mg BID@,18 PO Last administered on 10/18/16 06:11; Admin Dose 500 MG; Start 10/15/16 at 18:00; Stop 10/20/16 at 17:59 Oxycodone/ Acetaminophen (Endocet (10/ 325)) 1 tab Q4H PRN PO PAIN Last administered on 10/17/16 15:32; Admin Dose 1 TAB; Start 10/16/16 at 16:30 Oxycodone/ Acetaminophen (Endocet (10/ 325)) 2 tab Q4H PRN PO PAIN Last administered on 10/18/16 07:42; Admin Dose 2 TAB; Start 10/16/16 at 16:30 Acetaminophen (Tylenol Tab) 650 mg Q4H PRN PO PAIN AND OR ELEVATED TEMP; Start 10/16/16 at 16:30 Carisoprodol (Soma) 350 mg Q8H PRN PO MUSCLE SPASMS; Start 10/16/16 at 16:30 Assessment/Plan Additional Assessment/Plan Rehab- Lumbosacral radiculopathy with lumbar spondylolisthesis, status post decompressive laminectomy and fusion on 10/09/2016. Excellent progress with rehab program L samantha- [facility]. Continue support Acute pain syndrome. Diabetes mellitus type 2. SADIE PERSAUD MD Oct 18, 2016 11:07
[2016-10-18 20:00] VITALS: BP 124/59; RESP 18
[2016-10-18] MEDS: SENNA TAB PO SCH (20:39)
[2016-10-18] MEDS: MIRTAZAPINE 15 MG TAB PO SCH (20:40)
[2016-10-18] MEDS: ATORVASTATIN 40 MG TAB PO SCH (20:40)
[2016-10-18] MEDS: LATANOPROST 0.005% 2.5 ML OPH BOTH EYES SCH (20:40)
[2016-10-19] MEDS: ACCU-CHEK XX SCH (02:15)
[2016-10-19] MEDS: LEVOTHYROXINE 75 MCG TAB PO SCH (06:56)
[2016-10-19] MEDS: CIPROFLOXACIN 500 MG TAB PO SCH ×2 (06:56→18:24)
[2016-10-19 07:30] VITALS: BP 123/59; RESP 18
[2016-10-19] MEDS: INSULIN ASPART [NOVOLOG] 3 ML PEN SC SCH ×4 (07:35→20:52)
[2016-10-19] MEDS: metFORMIN (XR) 500 MG TAB PO SCH ×2 (08:46→18:28)
[2016-10-19] MEDS: GLIMEPIRIDE 4 MG TAB PO SCH ×2 (08:46→18:25)
[2016-10-19] MEDS: DOCUSATE SODIUM 100 MG CAP PO SCH ×2 (08:46→20:52)
[2016-10-19] MEDS: LINAGLIPTIN 5 MG TABLET PO SCH (08:47)
[2016-10-19] MEDS: TOPIRAMATE 100 MG TAB PO SCH ×2 (08:53→20:51)
[2016-10-19] MEDS: VENLAFAXINE (XR) 75 MG CAP PO SCH (08:54)
[2016-10-19] MEDS: OXYCODONE/ACETAMINOPHEN (10/325) TAB PO PRN (11:19)
--- NOTE | 2016-10-19 14:41 | PN ---
Date/Time of Note Date/Time of Note DATE: 10/19/16 TIME: 14:38 Assessment/Plan VTE Prophylaxis VTE Prophylaxis Intervention: ambulation, other Lines/Catheters IV Catheter Type (from Nrsg): Saline Lock Urinary Cath still in place: No Assessment/Plan Assessment/Plan 1. Degenerative spondylolisthesis with stenosis and radiculopathy at L4-L5, s/p Pedicle screw placement at L4 and L5, Left L4-5 and L5-S1 nerve root decompression for stenosis, Transforaminal lumbar interbody fusion at L4-5, Posterolateral fusion at L4-5. with impaired mobility/gait/ADLs. Continue PT/ OT. SBA for bed mobility and transfers. 2. Acute postoperative pain syndrome with baseline chronic pain. Continue pain regimen including prn percocet. Will monitor pain levels and adjust further as needed. 3. Left knee osteoarthritis with left knee pain. Continue pain control. 4. Diabetes mellitus type 2. Monitor blood sugars. Internal medicine medically managing. 5. Hypothyroidism. Continue levothyroxine. 6. Anemia. Continue to monitor hemoglobin/hematocrit. Subjective 24 Hr Interval Summary Free Text/Dictation Rehab progress note Subjective: Reports mild to moderate pain in low back and left knee. ROS: Denies chest pain, no shortness of breath, no abdominal pain, no vomiting, no chills. Exam/Review of Systems Vital Signs Vitals Vital Signs Date Time Temp Pulse Resp B/P Pulse Ox O2 Delivery O2 Flow Rate FiO2 10/19/16 07:30 97.7 59 18 123/59 100 Intake and Output 10/18/16 10/18/16 10/19/16 15:00 23:00 07:00 Intake Total 1710 ml 600 ml 300 ml Output Total 600 ml 350 ml 450 ml Balance 1110 ml 250 ml -150 ml Exam General: Awake, alert, no acute distress CV: Regular rate, s1s2 Lungs: Clear to auscultation, no wheezing Abdomen soft, nontender Extremities without cyanosis, calves nontender Neuro: Follows simple commands. Antigravity strength present. Results Results 24 hrs Laboratory Tests Test 10/18/16 16:59 10/18/16 20:42 10/19/16 07:55 10/19/16 08:24 Bedside Glucose 83 170 62 L 80 Test 10/19/16 12:23 Bedside Glucose 164 Medications Medications Current Medications Ondansetron HCl (Zofran Inj) 4 mg Q6H PRN IV NAUSEA AND/OR VOMITING; Start at 13:26 Bisacodyl (Dulcolax Supp) 10 mg DAILY PRN [place] CONSTIPATION; Start 10/13/16 at 13 :26 Docusate Sodium (Colace) 100 mg BID PO Last administered on 10/19/16 08:46; Admin Dose 100 MG; Start 10/13/16 at 13:26 Al Hydrox/Mg Hydrox/Simethicone (Mag-Al Plus) 15 ml Q6H PRN PO CONSTIPATION/ DYSPEPSIA; Start 10/13/16 at 13:26 Phenol (Cepastat Lozenge) 1 lozenge PRN PRN [place] SORE THROAT; Start 10/13/16 at 13:26 Diphenhydramine HCl (Benadryl) 25 mg Q6H PRN IV ITCHING; Start 10/13/16 at 13: 26 Naloxone HCl (Narcan) 0.2 mg Q2M PRN IV RR 8 BREATHS/MIN OR LESS; Start at 13:26 Latanoprost (Xalatan) 1 drop QHS BOTH EYES Last administered on 10/18/16 20:40 ; Admin Dose 1 DROP; Start 10/13/16 at 13:26 Mirtazapine (Remeron) 15 mg HS PO Last administered on 10/18/16 20:40; Admin Dose 15 MG; Start 10/13/16 at 13:26 Topiramate (Topamax) 100 mg BID PO Last administered on 10/19/16 08:53; Admin Dose 100 MG; Start 10/13/16 at 13:26 Venlafaxine HCl (Effexor Xr) 150 mg DAILY PO Last administered on 10/19/16 08: 54; Admin Dose 150 MG; Start 10/13/16 at 13:26 Atorvastatin Calcium (Lipitor) 40 mg HS PO Last administered on 10/18/16 20:40 ; Admin Dose 40 MG; Start 10/13/16 at 13:26 Diagnostic Test (Pha) (Accu-Chek) 1 ea 02 XX ; Start 10/13/16 at 13:26 Miscellaneous Information 1 ea NOTE XX ; Start 10/13/16 at 13:26 Glucose (Glutose) 15 gm Q15M PRN PO DECREASED GLUCOSE; Start 10/13/16 at 13:26 Glucose (Glutose) 22.5 gm Q15M PRN PO DECREASED GLUCOSE; Start 10/13/16 at 13: 26 Dextrose (D50w Syringe) 25 ml Q15M PRN IV DECREASED GLUCOSE; Start 10/13/16 at 13:26 Dextrose (D50w Syringe) 50 ml Q15M PRN IV DECREASED GLUCOSE; Start 10/13/16 at 13:26 Glucagon (Glucagen) 1 mg Q15M PRN IM DECREASED GLUCOSE; Start 10/13/16 at 13:26 Glucose (Glutose) 15 gm Q15M PRN BUCCAL DECREASED GLUCOSE; Start 10/13/16 at 13 :26 Linagliptin (Tradjenta) 5 mg DAILY PO Last administered on 10/19/16 08:47; Admin Dose 5 MG; Start 10/13/16 at 13:26 Senna (Senokot) 1 tab HS PO Last administered on 10/18/16 20:39; Admin Dose 1 TAB; Start 10/13/16 at 21:00 Bisacodyl (Dulcolax Supp) 10 mg DAILY PRN [place] CONSTIPATION; Start 10/13/16 at 14 :30 Magnesium Hydroxide (Milk Of Mag) 30 ml BID PRN PO CONSTIPATION; Start at 14:30 Lactulose (Enulose) 20 gm DAILY PRN PO CONSTIPATION; Start 10/13/16 at 14:30 Ciprofloxacin (Cipro) 500 mg BID@,18 PO Last administered on 10/19/16 06:56; Admin Dose 500 MG; Start 10/15/16 at 18:00; Stop 10/20/16 at 17:59 Oxycodone/ Acetaminophen (Endocet (10/ 325)) 1 tab Q4H PRN PO PAIN Last administered on 10/17/16 15:32; Admin Dose 1 TAB; Start 10/16/16 at 16:30 Oxycodone/ Acetaminophen (Endocet (10/ 325)) 2 tab Q4H PRN PO PAIN Last administered on 10/19/16 11:19; Admin Dose 2 TAB; Start 10/16/16 at 16:30 Acetaminophen (Tylenol Tab) 650 mg Q4H PRN PO PAIN AND OR ELEVATED TEMP; Start 10/16/16 at 16:30 Carisoprodol (Soma) 350 mg Q8H PRN PO MUSCLE SPASMS; Start 10/16/16 at 16:30 CAMDEN SIEGEL Oct 19, 2016 14:41
--- NOTE | 2016-10-19 17:32 | PN ---
Date/Time of Note Date/Time of Note DATE: 10/19/16 TIME: 17:30 Assessment/Plan VTE Prophylaxis VTE Prophylaxis Intervention: heparin Lines/Catheters IV [facility] Saline Lock Urinary Cath still in place: No Assessment/Plan Problems: (1) Status post lumbar discectomy Status: Acute Comment: She is recuperating after lumbar disc surgery is actually coming along nicely there is no evidence of untoward postoperative reaction (2) Hypothyroidism (acquired) Status: Chronic Comment: On adequate replacement. (3) Diabetes mellitus type 2 in obese Status: Chronic Comment: Please note the sugar of 68 this morning is not to be content concerned with. She is not on any medications that can induce hypoglycemia in the mostly can do his induce a euglycemic state. As such she is doing well Subjective 24 Hr Interval Summary Free Text/Dictation Patient lying in bed reports she is doing well although she is having some abdominal pain and requests a hot water bottle Constitutional: no complaints Eyes: no complaints Respiratory: no complaints Cardiovascular: no complaints Genitourinary: no complaints Musculoskeletal: no complaints Exam/Review of Systems Vital Signs Vitals Vital Signs Date Time Temp Pulse Resp B/P Pulse Ox O2 Delivery O2 Flow Rate FiO2 10/19/16 07:30 97.7 59 18 123/59 100 Intake and Output 10/18/16 10/18/16 10/19/16 15:00 23:00 07:00 Intake Total 1710 ml 600 ml 300 ml Output Total 600 ml 350 ml 450 ml Balance 1110 ml 250 ml -150 ml Exam Constitutional: alert, oriented Respiratory: clear to auscultation, normal air movement Cardiovascular: nl pulses, regular rate and rhythm Gastrointestinal: nl liver, spleen, non-tender, soft Results Results 24 hrs Laboratory Tests Test 10/18/16 20:42 10/19/16 07:55 10/19/16 08:24 10/19/16 12:23 Bedside Glucose 170 62 L 80 164 Test 10/19/16 17:27 Bedside Glucose 93 Medications Medications Current Medications Ondansetron HCl (Zofran Inj) 4 mg Q6H PRN IV NAUSEA AND/OR VOMITING; Start at 13:26 Bisacodyl (Dulcolax Supp) 10 mg DAILY PRN [place] CONSTIPATION; Start 10/13/16 at 13 :26 Docusate Sodium (Colace) 100 mg BID PO Last administered on 10/19/16 08:46; Admin Dose 100 MG; Start 10/13/16 at 13:26 Al Hydrox/Mg Hydrox/Simethicone (Mag-Al Plus) 15 ml Q6H PRN PO CONSTIPATION/ DYSPEPSIA; Start 10/13/16 at 13:26 Phenol (Cepastat Lozenge) 1 lozenge PRN PRN [place] SORE THROAT; Start 10/13/16 at 13:26 Diphenhydramine HCl (Benadryl) 25 mg Q6H PRN IV ITCHING; Start 10/13/16 at 13: 26 Naloxone HCl (Narcan) 0.2 mg Q2M PRN IV RR 8 BREATHS/MIN OR LESS; Start at 13:26 Latanoprost (Xalatan) 1 drop QHS BOTH EYES Last administered on 10/18/16 20:40 ; Admin Dose 1 DROP; Start 10/13/16 at 13:26 Mirtazapine (Remeron) 15 mg HS PO Last administered on 10/18/16 20:40; Admin Dose 15 MG; Start 10/13/16 at 13:26 Topiramate (Topamax) 100 mg BID PO Last administered on 10/19/16 08:53; Admin Dose 100 MG; Start 10/13/16 at 13:26 Venlafaxine HCl (Effexor Xr) 150 mg DAILY PO Last administered on 10/19/16 08: 54; Admin Dose 150 MG; Start 10/13/16 at 13:26 Atorvastatin Calcium (Lipitor) 40 mg HS PO Last administered on 10/18/16 20:40 ; Admin Dose 40 MG; Start 10/13/16 at 13:26 Diagnostic Test (Pha) (Accu-Chek) 1 ea 02 XX ; Start 10/13/16 at 13:26 Miscellaneous Information 1 ea NOTE XX ; Start 10/13/16 at 13:26 Glucose (Glutose) 15 gm Q15M PRN PO DECREASED GLUCOSE; Start 10/13/16 at 13:26 Glucose (Glutose) 22.5 gm Q15M PRN PO DECREASED GLUCOSE; Start 10/13/16 at 13: 26 Dextrose (D50w Syringe) 25 ml Q15M PRN IV DECREASED GLUCOSE; Start 10/13/16 at 13:26 Dextrose (D50w Syringe) 50 ml Q15M PRN IV DECREASED GLUCOSE; Start 10/13/16 at 13:26 Glucagon (Glucagen) 1 mg Q15M PRN IM DECREASED GLUCOSE; Start 10/13/16 at 13:26 Glucose (Glutose) 15 gm Q15M PRN BUCCAL DECREASED GLUCOSE; Start 10/13/16 at 13 :26 Linagliptin (Tradjenta) 5 mg DAILY PO Last administered on 10/19/16 08:47; Admin Dose 5 MG; Start 10/13/16 at 13:26 Senna (Senokot) 1 tab HS PO Last administered on 10/18/16 20:39; Admin Dose 1 TAB; Start 10/13/16 at 21:00 Bisacodyl (Dulcolax Supp) 10 mg DAILY PRN [place] CONSTIPATION; Start 10/13/16 at 14 :30 Magnesium Hydroxide (Milk Of Mag) 30 ml BID PRN PO CONSTIPATION; Start at 14:30 Lactulose (Enulose) 20 gm DAILY PRN PO CONSTIPATION; Start 10/13/16 at 14:30 Ciprofloxacin (Cipro) 500 mg BID@,18 PO Last administered on 10/19/16 06:56; Admin Dose 500 MG; Start 10/15/16 at 18:00; Stop 10/20/16 at 17:59 Oxycodone/ Acetaminophen (Endocet (10/ 325)) 1 tab Q4H PRN PO PAIN Last administered on 10/17/16 15:32; Admin Dose 1 TAB; Start 10/16/16 at 16:30 Oxycodone/ Acetaminophen (Endocet (10/ 325)) 2 tab Q4H PRN PO PAIN Last administered on 10/19/16 11:19; Admin Dose 2 TAB; Start 10/16/16 at 16:30 Acetaminophen (Tylenol Tab) 650 mg Q4H PRN PO PAIN AND OR ELEVATED TEMP; Start 10/16/16 at 16:30 Carisoprodol (Soma) 350 mg Q8H PRN PO MUSCLE SPASMS; Start 10/16/16 at 16:30 RAMIREZ GAINES MD Oct 19, 2016 17:32
[2016-10-19 20:00] VITALS: BP 120/59; RESP 18
[2016-10-19] MEDS: MIRTAZAPINE 15 MG TAB PO SCH (20:51)
[2016-10-19] MEDS: LATANOPROST 0.005% 2.5 ML OPH BOTH EYES SCH (20:51)
[2016-10-19] MEDS: ATORVASTATIN 40 MG TAB PO SCH (20:51)
[2016-10-19] MEDS: SENNA TAB PO SCH (20:52)
[2016-10-20] MEDS: ACCU-CHEK XX SCH (02:00)
[2016-10-20] MEDS: OXYCODONE/ACETAMINOPHEN (10/325) TAB PO PRN ×3 (02:50→14:14)
[2016-10-20] MEDS: LEVOTHYROXINE 75 MCG TAB PO SCH (06:36)
[2016-10-20] MEDS: CIPROFLOXACIN 500 MG TAB PO SCH ×2 (06:36→17:41)
[2016-10-20] MEDS: INSULIN ASPART [NOVOLOG] 3 ML PEN SC SCH ×4 (07:35→20:26)
[2016-10-20 07:43] VITALS: BP 108/56; RESP 18
[2016-10-20] MEDS: TOPIRAMATE 100 MG TAB PO SCH ×2 (08:42→20:26)
[2016-10-20] MEDS: DOCUSATE SODIUM 100 MG CAP PO SCH ×2 (08:42→20:26)
[2016-10-20] MEDS: VENLAFAXINE (XR) 75 MG CAP PO SCH (08:42)
[2016-10-20] MEDS: LINAGLIPTIN 5 MG TABLET PO SCH (08:42)
[2016-10-20] MEDS: GLIMEPIRIDE 4 MG TAB PO SCH ×2 (08:45→17:41)
[2016-10-20] MEDS: metFORMIN (XR) 500 MG TAB PO SCH ×2 (08:45→17:57)
--- NOTE | 2016-10-20 11:38 | PN ---
Date/Time of Note Date/Time of Note DATE: 10/20/16 TIME: 11:34 Assessment/Plan VTE Prophylaxis VTE Prophylaxis Intervention: ambulation, other Lines/Catheters IV Catheter Type (from Nrsg): Saline Lock Urinary Cath still in place: No Assessment/Plan Assessment/Plan 1. Degenerative spondylolisthesis with stenosis and radiculopathy at L4-L5, s/p Pedicle screw placement at L4 and L5, Left L4-5 and L5-S1 nerve root decompression for stenosis, Transforaminal lumbar interbody fusion at L4-5, Posterolateral fusion at L4-5. with impaired mobility/gait/ADLs. Continue PT/OT. 2. Acute postoperative pain syndrome with baseline chronic pain. Overall appears controlled. Continue current pain regimen. 3. Left knee osteoarthritis with left knee pain. Continue pain control and knee brace for support. 4. Diabetes mellitus type 2. Internal medicine medically managing. Blood sugars controlled. 5. Hypothyroidism. Continue levothyroxine. 6. Anemia. Continue to monitor hemoglobin/hematocrit. Subjective 24 Hr Interval Summary Free Text/Dictation Rehab progress note Subjective: Seen ambulating in the hallways with PT this morning. Stable pain in low back and left knee. ROS: Denies new weakness, no new paresthesias, no chest pain, no shortness of breath, no abdominal pain. Reports bowel movement yesterday. Exam/Review of Systems Vital Signs Vitals Vital Signs Date Time Temp Pulse Resp B/P Pulse Ox O2 Delivery O2 Flow Rate FiO2 10/20/16 07:43 98.0 60 18 108/56 98 Intake and Output 10/19/16 10/19/16 10/20/16 15:00 23:00 07:00 Intake Total 970 ml 360 ml Balance 970 ml 360 ml Exam General: Awake, alert, no acute distress CV: Regular rate, s1s2 Lungs: No crackles, no wheezing Abdomen soft, nontender Extremities without cyanosis, no new swelling Neuro: Antigravity strength BLE. Follows simple commands. Results Results 24 hrs Laboratory Tests Test 10/19/16 12:23 10/19/16 17:27 10/19/16 20:48 10/20/16 07:32 Bedside Glucose 164 93 159 107 Medications Medications Current Medications Ondansetron HCl (Zofran Inj) 4 mg Q6H PRN IV NAUSEA AND/OR VOMITING; Start at 13:26 Bisacodyl (Dulcolax Supp) 10 mg DAILY PRN [place] CONSTIPATION; Start 10/13/16 at 13 :26 Docusate Sodium (Colace) 100 mg BID PO Last administered on 10/20/16 08:42; Admin Dose 100 MG; Start 10/13/16 at 13:26 Al Hydrox/Mg Hydrox/Simethicone (Mag-Al Plus) 15 ml Q6H PRN PO CONSTIPATION/ DYSPEPSIA; Start 10/13/16 at 13:26 Phenol (Cepastat Lozenge) 1 lozenge PRN PRN [place] SORE THROAT; Start 10/13/16 at 13:26 Diphenhydramine HCl (Benadryl) 25 mg Q6H PRN IV ITCHING; Start 10/13/16 at 13: 26 Naloxone HCl (Narcan) 0.2 mg Q2M PRN IV RR 8 BREATHS/MIN OR LESS; Start at 13:26 Latanoprost (Xalatan) 1 drop QHS BOTH EYES Last administered on 10/19/16 20:51 ; Admin Dose 1 DROP; Start 10/13/16 at 13:26 Mirtazapine (Remeron) 15 mg HS PO Last administered on 10/19/16 20:51; Admin Dose 15 MG; Start 10/13/16 at 13:26 Topiramate (Topamax) 100 mg BID PO Last administered on 10/20/16 08:42; Admin Dose 100 MG; Start 10/13/16 at 13:26 Venlafaxine HCl (Effexor Xr) 150 mg DAILY PO Last administered on 10/20/16 08: 42; Admin Dose 150 MG; Start 10/13/16 at 13:26 Atorvastatin Calcium (Lipitor) 40 mg HS PO Last administered on 10/19/16 20:51 ; Admin Dose 40 MG; Start 10/13/16 at 13:26 Diagnostic Test (Pha) (Accu-Chek) 1 ea 02 XX ; Start 10/13/16 at 13:26 Miscellaneous Information 1 ea NOTE XX ; Start 10/13/16 at 13:26 Glucose (Glutose) 15 gm Q15M PRN PO DECREASED GLUCOSE; Start 10/13/16 at 13:26 Glucose (Glutose) 22.5 gm Q15M PRN PO DECREASED GLUCOSE; Start 10/13/16 at 13: 26 Dextrose (D50w Syringe) 25 ml Q15M PRN IV DECREASED GLUCOSE; Start 10/13/16 at 13:26 Dextrose (D50w Syringe) 50 ml Q15M PRN IV DECREASED GLUCOSE; Start 10/13/16 at 13:26 Glucagon (Glucagen) 1 mg Q15M PRN IM DECREASED GLUCOSE; Start 10/13/16 at 13:26 Glucose (Glutose) 15 gm Q15M PRN BUCCAL DECREASED GLUCOSE; Start 10/13/16 at 13 :26 Linagliptin (Tradjenta) 5 mg DAILY PO Last administered on 10/20/16 08:42; Admin Dose 5 MG; Start 10/13/16 at 13:26 Senna (Senokot) 1 tab HS PO Last administered on 10/18/16 20:39; Admin Dose 1 TAB; Start 10/13/16 at 21:00 Bisacodyl (Dulcolax Supp) 10 mg DAILY PRN [place] CONSTIPATION; Start 10/13/16 at 14 :30 Magnesium Hydroxide (Milk Of Mag) 30 ml BID PRN PO CONSTIPATION; Start at 14:30 Lactulose (Enulose) 20 gm DAILY PRN PO CONSTIPATION; Start 10/13/16 at 14:30 Ciprofloxacin (Cipro) 500 mg BID@ PO Last administered on 10/20/16 06:36; Admin Dose 500 MG; Start 10/15/16 at 18:00; Stop 10/20/16 at 17:59 Oxycodone/ Acetaminophen (Endocet (10/ 325)) 1 tab Q4H PRN PO PAIN Last administered on 10/20/16 02:50; Admin Dose 1 TAB; Start 10/16/16 at 16:30 Oxycodone/ Acetaminophen (Endocet (10/ 325)) 2 tab Q4H PRN PO PAIN Last administered on 10/20/16 08:49; Admin Dose 2 TAB; Start 10/16/16 at 16:30 Acetaminophen (Tylenol Tab) 650 mg Q4H PRN PO PAIN AND OR ELEVATED TEMP; Start 10/16/16 at 16:30 Carisoprodol (Soma) 350 mg Q8H PRN PO MUSCLE SPASMS; Start 10/16/16 at 16:30 CAMDEN SIEGEL Oct 20, 2016 11:38
[2016-10-20 13:38] LABS: ADD UMIC YES; UR BILIRUBIN (Dip) NEGATIVE (NEGATIVE); UR BLOOD (Dip) NEGATIVE (NEGATIVE); UR CLARITY CLEAR (CLEAR); UR COLOR LT. YELLOW (YELLOW); UR GLUCOSE (Dip) NEGATIVE (NEGATIVE); UR KETONES (Dip) NEGATIVE (NEGATIVE); UR LEUKOCYTE ESTERASE (Dip) 1+ (NEGATIVE); UR NITRITE (Dip) NEGATIVE (NEGATIVE); UR TOTAL PROTEIN (Dip) NEGATIVE (NEGATIVE); UR UROBILINOGEN (Dip) 0.2 E.U./dL (0.1-1.0)
[2016-10-20 14:10] LABS: UR BACTERIA FEW; URINE RBCS NONE SEEN /HPF (0)
[2016-10-20 20:00] VITALS: BP 97/52; RESP 18
[2016-10-20] MEDS: ATORVASTATIN 40 MG TAB PO SCH (20:26)
[2016-10-20] MEDS: SENNA TAB PO SCH (20:26)
[2016-10-20] MEDS: LATANOPROST 0.005% 2.5 ML OPH BOTH EYES SCH (20:26)
[2016-10-20] MEDS: MIRTAZAPINE 15 MG TAB PO SCH (20:26)
[2016-10-21] MEDS: ACCU-CHEK XX SCH (02:00)
[2016-10-21] MEDS: LEVOTHYROXINE 75 MCG TAB PO SCH (06:38)
[2016-10-21] MEDS: INSULIN ASPART [NOVOLOG] 3 ML PEN SC SCH ×4 (07:35→20:19)
[2016-10-21] MEDS: GLIMEPIRIDE 4 MG TAB PO SCH ×2 (07:58→17:34)
[2016-10-21] MEDS: DOCUSATE SODIUM 100 MG CAP PO SCH ×2 (09:21→20:18)
[2016-10-21] MEDS: metFORMIN (XR) 500 MG TAB PO SCH ×2 (09:21→17:35)
[2016-10-21] MEDS: LINAGLIPTIN 5 MG TABLET PO SCH (09:22)
[2016-10-21] MEDS: VENLAFAXINE (XR) 75 MG CAP PO SCH (09:22)
[2016-10-21] MEDS: TOPIRAMATE 100 MG TAB PO SCH ×2 (09:22→20:19)
[2016-10-21] MEDS: DIPHENHYDRAMINE 50 MG INJ IV PRN ×2 (09:32→20:25)
[2016-10-21] MEDS: OXYCODONE/ACETAMINOPHEN (10/325) TAB PO PRN (10:05)
--- NOTE | 2016-10-21 11:22 | PN ---
Date/Time of Note Date/Time of Note DATE: 10/21/16 TIME: 11:20 Assessment/Plan VTE Prophylaxis VTE Prophylaxis Intervention: ambulation Lines/Catheters IV Catheter Type (from Nrsg): Saline Lock Urinary Cath still in place: No Assessment/Plan Assessment/Plan 1. Degenerative spondylolisthesis with stenosis and radiculopathy at L4-L5, s/p Pedicle screw placement at L4 and L5, Left L4-5 and L5-S1 nerve root decompression for stenosis, Transforaminal lumbar interbody fusion at L4-5, Posterolateral fusion at L4-5. with impaired mobility/gait/ADLs. Continue PT/ OT. Gait improving now SPV 300ft +200ft with FWW. 2. Acute postoperative pain syndrome with baseline chronic pain. Continue pain regimen. 3. Left knee osteoarthritis with left knee pain. Continue pain control and knee brace for support. Will add lidoderm patch for better pain relief. 4. Diabetes mellitus type 2. Internal medicine medically managing. Blood sugars controlled. 5. Hypothyroidism. Continue levothyroxine. 6. Anemia. Continue to monitor hemoglobin/hematocrit. Subjective 24 Hr Interval Summary Free Text/Dictation Rehab progress note Subjective: Reports moderate pain in left knee. ROS: Denies chest pain, no shortness of breath, no abdominal pain, no nausea, no vomiting, no headache, no chills. Exam/Review of Systems Vital Signs Vitals Vital Signs Date Time Temp Pulse Resp B/P Pulse Ox O2 Delivery O2 Flow Rate FiO2 10/20/16 20:00 97.8 62 18 97/52 94 Intake and Output 10/20/16 10/20/16 10/21/16 15:00 23:00 07:00 Intake Total 1200 ml 600 ml Output Total 700 ml 350 ml 750 ml Balance 500 ml 250 ml -750 ml Exam General: Awake, alert, no acute distress CV: Regular rate, s1s2 Lungs: Respirations are nonlabored, no wheezing Abdomen soft, nontender Extremities without cyanosis, no new swelling Neuro/MSK: Left knee no new joint effusion or joint redness. No new focal weakness. Results Results 24 hrs Laboratory Tests Test 10/20/16 12:09 10/20/16 17:04 10/20/16 20:23 10/21/16 07:47 Bedside Glucose 130 122 135 92 Medications Medications Current Medications Ondansetron HCl (Zofran Inj) 4 mg Q6H PRN IV NAUSEA AND/OR VOMITING; Start at 13:26 Bisacodyl (Dulcolax Supp) 10 mg DAILY PRN [place] CONSTIPATION; Start 10/13/16 at 13 :26 Docusate Sodium (Colace) 100 mg BID PO Last administered on 10/21/16 09:21; Admin Dose 100 MG; Start 10/13/16 at 13:26 Al Hydrox/Mg Hydrox/Simethicone (Mag-Al Plus) 15 ml Q6H PRN PO CONSTIPATION/ DYSPEPSIA; Start 10/13/16 at 13:26 Phenol (Cepastat Lozenge) 1 lozenge PRN PRN [place] SORE THROAT; Start 10/13/16 at 13:26 Diphenhydramine HCl (Benadryl) 25 mg Q6H PRN IV ITCHING Last administered on 09:32; Admin Dose 25 MG; Start 10/13/16 at 13:26 Naloxone HCl (Narcan) 0.2 mg Q2M PRN IV RR 8 BREATHS/MIN OR LESS; Start at 13:26 Latanoprost (Xalatan) 1 drop QHS BOTH EYES Last administered on 10/20/16 20:26 ; Admin Dose 1 DROP; Start 10/13/16 at 13:26 Mirtazapine (Remeron) 15 mg HS PO Last administered on 10/20/16 20:26; Admin Dose 15 MG; Start 10/13/16 at 13:26 Topiramate (Topamax) 100 mg BID PO Last administered on 10/21/16 09:22; Admin Dose 100 MG; Start 10/13/16 at 13:26 Venlafaxine HCl (Effexor Xr) 150 mg DAILY PO Last administered on 10/21/16 09: 22; Admin Dose 150 MG; Start 10/13/16 at 13:26 Atorvastatin Calcium (Lipitor) 40 mg HS PO Last administered on 10/20/16 20:26 ; Admin Dose 40 MG; Start 10/13/16 at 13:26 Diagnostic Test (Pha) (Accu-Chek) 1 ea 02 XX ; Start 10/13/16 at 13:26 Miscellaneous Information 1 ea NOTE XX ; Start 10/13/16 at 13:26 Glucose (Glutose) 15 gm Q15M PRN PO DECREASED GLUCOSE; Start 10/13/16 at 13:26 Glucose (Glutose) 22.5 gm Q15M PRN PO DECREASED GLUCOSE; Start 10/13/16 at 13: 26 Dextrose (D50w Syringe) 25 ml Q15M PRN IV DECREASED GLUCOSE; Start 10/13/16 at 13:26 Dextrose (D50w Syringe) 50 ml Q15M PRN IV DECREASED GLUCOSE; Start 10/13/16 at 13:26 Glucagon (Glucagen) 1 mg Q15M PRN IM DECREASED GLUCOSE; Start 10/13/16 at 13:26 Glucose (Glutose) 15 gm Q15M PRN BUCCAL DECREASED GLUCOSE; Start 10/13/16 at 13 :26 Linagliptin (Tradjenta) 5 mg DAILY PO Last administered on 10/21/16 09:22; Admin Dose 5 MG; Start 10/13/16 at 13:26 Senna (Senokot) 1 tab HS PO Last administered on 10/20/16 20:26; Admin Dose 1 TAB; Start 10/13/16 at 21:00 Bisacodyl (Dulcolax Supp) 10 mg DAILY PRN [place] CONSTIPATION; Start 10/13/16 at 14 :30 Magnesium Hydroxide (Milk Of Mag) 30 ml BID PRN PO CONSTIPATION; Start at 14:30 Lactulose (Enulose) 20 gm DAILY PRN PO CONSTIPATION; Start 10/13/16 at 14:30 Oxycodone/ Acetaminophen (Endocet (10/ 325)) 1 tab Q4H PRN PO PAIN Last administered on 10/21/16 10:05; Admin Dose 1 TAB; Start 10/16/16 at 16:30 Oxycodone/ Acetaminophen (Endocet (10/ 325)) 2 tab Q4H PRN PO PAIN Last administered on 10/20/16 14:14; Admin Dose 2 TAB; Start 10/16/16 at 16:30 Acetaminophen (Tylenol Tab) 650 mg Q4H PRN PO PAIN AND OR ELEVATED TEMP; Start 10/16/16 at 16:30 Carisoprodol (Soma) 350 mg Q8H PRN PO MUSCLE SPASMS; Start 10/16/16 at 16:30 CAMDEN SIEGEL Oct 21, 2016 11:22
[2016-10-21] MEDS: LIDOCAINE 5% PATCH TD SCH (11:48)
[2016-10-21] MEDS: ATORVASTATIN 40 MG TAB PO SCH (20:18)
[2016-10-21] MEDS: LATANOPROST 0.005% 2.5 ML OPH BOTH EYES SCH (20:18)
[2016-10-21] MEDS: MIRTAZAPINE 15 MG TAB PO SCH (20:18)
[2016-10-21] MEDS: SENNA TAB PO SCH (20:19)
[2016-10-21 20:32] VITALS: BP 127/59; PULSE 63; RESP 18
[2016-10-22] MEDS: OXYCODONE/ACETAMINOPHEN (10/325) TAB PO PRN ×2 (00:25→20:11)
[2016-10-22] MEDS: ACCU-CHEK XX SCH (02:00)
[2016-10-22] MEDS: LEVOTHYROXINE 75 MCG TAB PO SCH (07:03)
[2016-10-22] MEDS: INSULIN ASPART [NOVOLOG] 3 ML PEN SC SCH ×4 (07:35→21:00)
[2016-10-22] MEDS: metFORMIN (XR) 500 MG TAB PO SCH ×2 (07:35→17:47)
[2016-10-22] MEDS: GLIMEPIRIDE 4 MG TAB PO SCH ×2 (07:35→17:48)
[2016-10-22] MEDS: TOPIRAMATE 100 MG TAB PO SCH ×2 (08:56→20:07)
[2016-10-22] MEDS: LINAGLIPTIN 5 MG TABLET PO SCH (08:56)
[2016-10-22] MEDS: DOCUSATE SODIUM 100 MG CAP PO SCH ×2 (08:56→20:08)
[2016-10-22] MEDS: VENLAFAXINE (XR) 75 MG CAP PO SCH (08:57)
[2016-10-22] MEDS: LIDOCAINE 5% PATCH TD SCH (09:00)
--- NOTE | 2016-10-22 10:09 | PN ---
Date/Time of Note Date/Time of Note DATE: 10/22/16 TIME: 10:06 Assessment/Plan VTE Prophylaxis VTE Prophylaxis Intervention: ambulation Lines/Catheters IV Catheter Type (from Nrsg): Saline Lock Urinary Cath still in place: No Assessment/Plan Assessment/Plan 1. Degenerative spondylolisthesis with stenosis and radiculopathy at L4-L5, s/p Pedicle screw placement at L4 and L5, Left L4-5 and L5-S1 nerve root decompression for stenosis, Transforaminal lumbar interbody fusion at L4-5, Posterolateral fusion at L4-5. with impaired mobility/gait/ADLs. Continue PT/ OT. Negotiating 25 stairs with SBA with bilateral handrails. SBA for upper and lower body dressing. Continue surgical site care. 2. Acute postoperative pain syndrome with baseline chronic pain. Continue current pain regimen. 3. Left knee osteoarthritis with left knee pain. Pain improved with starting lidoderm patch, continue to monitor. 4. Diabetes mellitus type 2. Continue to monitor blood sugars, controlled. Continue current medical management. 5. Hypothyroidism. Continue levothyroxine. 6. Anemia. Continue to monitor hemoglobin/hematocrit. Subjective 24 Hr Interval Summary Free Text/Dictation Rehab progress note Subjective: Reports improved pain in left knee since adjusting pain regimen yesterday, currently minimal pain. ROS: Denies chest pain, no shortness of breath, no abdominal pain, no nausea, no chills, no dysuria, no urinary frequency. Reports bowel movement yesterday. Exam/Review of Systems Vital Signs Vitals Vital Signs Date Time Temp Pulse Resp B/P Pulse Ox O2 Delivery O2 Flow Rate FiO2 10/21/16 20:32 98.7 63 18 127/59 97 Room Air Intake and Output 10/21/16 10/21/16 10/22/16 15:00 23:00 07:00 Intake Total 850 ml Balance 850 ml Exam General: Awake, alert, no acute distress CV: Regular rate, s1s2 Lungs: Symmetrical air entry bilaterally, no wheezing or crackles Abdomen soft, nontender Extremities without cyanosis, no new swelling Neuro/MSK: No new focal changes. Follows simple commands. Results Results 24 hrs Laboratory Tests Test 10/21/16 11:53 10/21/16 17:13 10/21/16 20:16 10/22/16 07:40 Bedside Glucose 133 98 115 92 Medications Medications Current Medications Ondansetron HCl (Zofran Inj) 4 mg Q6H PRN IV NAUSEA AND/OR VOMITING; Start at 13:26 Bisacodyl (Dulcolax Supp) 10 mg DAILY PRN [place] CONSTIPATION; Start 10/13/16 at 13 :26 Docusate Sodium (Colace) 100 mg BID PO Last administered on 10/22/16 08:56; Admin Dose 100 MG; Start 10/13/16 at 13:26 Al Hydrox/Mg Hydrox/Simethicone (Mag-Al Plus) 15 ml Q6H PRN PO CONSTIPATION/ DYSPEPSIA; Start 10/13/16 at 13:26 Phenol (Cepastat Lozenge) 1 lozenge PRN PRN [place] SORE THROAT; Start 10/13/16 at 13:26 Diphenhydramine HCl (Benadryl) 25 mg Q6H PRN IV ITCHING Last administered on 20:25; Admin Dose 25 MG; Start 10/13/16 at 13:26 Naloxone HCl (Narcan) 0.2 mg Q2M PRN IV RR 8 BREATHS/MIN OR LESS; Start at 13:26 Latanoprost (Xalatan) 1 drop QHS BOTH EYES Last administered on 10/21/16 20:18 ; Admin Dose 1 DROP; Start 10/13/16 at 13:26 Mirtazapine (Remeron) 15 mg HS PO Last administered on 10/21/16 20:18; Admin Dose 15 MG; Start 10/13/16 at 13:26 Topiramate (Topamax) 100 mg BID PO Last administered on 10/22/16 08:56; Admin Dose 100 MG; Start 10/13/16 at 13:26 Venlafaxine HCl (Effexor Xr) 150 mg DAILY PO Last administered on 10/22/16 08: 57; Admin Dose 150 MG; Start 10/13/16 at 13:26 Atorvastatin Calcium (Lipitor) 40 mg HS PO Last administered on 10/21/16 20:18 ; Admin Dose 40 MG; Start 10/13/16 at 13:26 Diagnostic Test (Pha) (Accu-Chek) 1 ea 02 XX ; Start 10/13/16 at 13:26 Miscellaneous Information 1 ea NOTE XX ; Start 10/13/16 at 13:26 Glucose (Glutose) 15 gm Q15M PRN PO DECREASED GLUCOSE; Start 10/13/16 at 13:26 Glucose (Glutose) 22.5 gm Q15M PRN PO DECREASED GLUCOSE; Start 10/13/16 at 13: 26 Dextrose (D50w Syringe) 25 ml Q15M PRN IV DECREASED GLUCOSE; Start 10/13/16 at 13:26 Dextrose (D50w Syringe) 50 ml Q15M PRN IV DECREASED GLUCOSE; Start 10/13/16 at 13:26 Glucagon (Glucagen) 1 mg Q15M PRN IM DECREASED GLUCOSE; Start 10/13/16 at 13:26 Glucose (Glutose) 15 gm Q15M PRN BUCCAL DECREASED GLUCOSE; Start 10/13/16 at 13 :26 Linagliptin (Tradjenta) 5 mg DAILY PO Last administered on 10/22/16 08:56; Admin Dose 5 MG; Start 10/13/16 at 13:26 Senna (Senokot) 1 tab HS PO Last administered on 10/20/16 20:26; Admin Dose 1 TAB; Start 10/13/16 at 21:00 Bisacodyl (Dulcolax Supp) 10 mg DAILY PRN [place] CONSTIPATION; Start 10/13/16 at 14 :30 Magnesium Hydroxide (Milk Of Mag) 30 ml BID PRN PO CONSTIPATION; Start at 14:30 Lactulose (Enulose) 20 gm DAILY PRN PO CONSTIPATION; Start 10/13/16 at 14:30 Oxycodone/ Acetaminophen (Endocet (10/ 325)) 1 tab Q4H PRN PO PAIN Last administered on 10/21/16 10:05; Admin Dose 1 TAB; Start 10/16/16 at 16:30 Oxycodone/ Acetaminophen (Endocet (10/ 325)) 2 tab Q4H PRN PO PAIN Last administered on 10/22/16 00:25; Admin Dose 2 TAB; Start 10/16/16 at 16:30 Acetaminophen (Tylenol Tab) 650 mg Q4H PRN PO PAIN AND OR ELEVATED TEMP; Start 10/16/16 at 16:30 Carisoprodol (Soma) 350 mg Q8H PRN PO MUSCLE SPASMS; Start 10/16/16 at 16:30 Lidocaine (Lidoderm) 1 patch DAILY TD Last administered on 10/21/16t 11:48; Admin Dose 1 PATCH; Start 10/21/16 at 11:30 CAMDEN SIEGEL Oct 22, 2016 10:09
--- NOTE | 2016-10-22 17:48 | PN ---
Date/Time of Note Date/Time of Note DATE: 10/22/16 TIME: 17:46 Assessment/Plan VTE Prophylaxis VTE Prophylaxis Intervention: ambulation Lines/Catheters IV Catheter Type (from Nrs): Saline Lock Urinary Cath still in place: No Assessment/Plan Problems: (1) Dysthymia (or depressive neurosis) Status: Chronic (2) Diabetes mellitus type 2 in obese Status: Chronic (3) E. coli UTI (urinary tract infection) Status: Acute (4) Hypothyroidism (acquired) Status: Chronic (5) Glaucoma Status: Chronic Qualifiers: Glaucoma type: unspecified type Laterality: bilateral Qualified Code: H40.9 - Glaucoma of both eyes, unspecified glaucoma Assessment/Plan Clinically stable and doing well. Subjective 24 Hr Interval Summary Free Text/Dictation Patient without complaints today Exam/Review of Systems Vital Signs Vitals Vital Signs Date Time Temp Pulse Resp B/P Pulse Ox O2 Delivery O2 Flow Rate FiO2 10/21/16 20:32 98.7 63 18 127/59 97 Room Air Intake and Output 10/21/16 10/21/16 10/22/16 15:00 23:00 07:00 Intake Total 850 ml Balance 850 ml Exam Constitutional: alert, oriented, well developed Neck: supple Respiratory: clear to auscultation Cardiovascular: regular rate and rhythm, systolic murmur Gastrointestinal: soft Musculoskeletal: nl extremities to inspection Results Results 24 hrs Laboratory Tests Test 10/21/16 20:16 10/22/16 07:40 10/22/16 12:11 Bedside Glucose 115 92 102 Medications Medications Current Medications Ondansetron HCl (Zofran Inj) 4 mg Q6H PRN IV NAUSEA AND/OR VOMITING; Start at 13:26 Bisacodyl (Dulcolax Supp) 10 mg DAILY PRN [place] CONSTIPATION; Start 10/13/16 at 13 :26 Docusate Sodium (Colace) 100 mg BID PO Last administered on 10/22/16t 08:56; Admin Dose 100 MG; Start 10/13/16 at 13:26 Al Hydrox/Mg Hydrox/Simethicone (Mag-Al Plus) 15 ml Q6H PRN PO CONSTIPATION/ DYSPEPSIA; Start 10/13/16 at 13:26 Phenol (Cepastat Lozenge) 1 lozenge PRN PRN [place] SORE THROAT; Start 10/13/16 at 13:26 Diphenhydramine HCl (Benadryl) 25 mg Q6H PRN IV ITCHING Last administered on 20:25; Admin Dose 25 MG; Start 10/13/16 at 13:26 Naloxone HCl (Narcan) 0.2 mg Q2M PRN IV RR 8 BREATHS/MIN OR LESS; Start at 13:26 Latanoprost (Xalatan) 1 drop QHS BOTH EYES Last administered on 10/21/16 20:18 ; Admin Dose 1 DROP; Start 10/13/16 at 13:26 Mirtazapine (Remeron) 15 mg HS PO Last administered on 10/21/16 20:18; Admin Dose 15 MG; Start 10/13/16 at 13:26 Topiramate (Topamax) 100 mg BID PO Last administered on 10/22/16 08:56; Admin Dose 100 MG; Start 10/13/16 at 13:26 Venlafaxine HCl (Effexor Xr) 150 mg DAILY PO Last administered on 10/22/16 08: 57; Admin Dose 150 MG; Start 10/13/16 at 13:26 Atorvastatin Calcium (Lipitor) 40 mg HS PO Last administered on 10/21/16 20:18 ; Admin Dose 40 MG; Start 10/13/16 at 13:26 Diagnostic Test (Pha) (Accu-Chek) 1 ea 02 XX ; Start 10/13/16 at 13:26 Miscellaneous Information 1 ea NOTE XX ; Start 10/13/16 at 13:26 Glucose (Glutose) 15 gm Q15M PRN PO DECREASED GLUCOSE; Start 10/13/16 at 13:26 Glucose (Glutose) 22.5 gm Q15M PRN PO DECREASED GLUCOSE; Start 10/13/16 at 13: 26 Dextrose (D50w Syringe) 25 ml Q15M PRN IV DECREASED GLUCOSE; Start 10/13/16 at 13:26 Dextrose (D50w Syringe) 50 ml Q15M PRN IV DECREASED GLUCOSE; Start 10/13/16 at 13:26 Glucagon (Glucagen) 1 mg Q15M PRN IM DECREASED GLUCOSE; Start 10/13/16 at 13:26 Glucose (Glutose) 15 gm Q15M PRN BUCCAL DECREASED GLUCOSE; Start 10/13/16 at 13 :26 Linagliptin (Tradjenta) 5 mg DAILY PO Last administered on 10/22/16 08:56; Admin Dose 5 MG; Start 10/13/16 at 13:26 Senna (Senokot) 1 tab HS PO Last administered on 10/20/16 20:26; Admin Dose 1 TAB; Start 10/13/16 at 21:00 Bisacodyl (Dulcolax Supp) 10 mg DAILY PRN [place] CONSTIPATION; Start 10/13/16 at 14 :30 Magnesium Hydroxide (Milk Of Mag) 30 ml BID PRN PO CONSTIPATION; Start at 14:30 Lactulose (Enulose) 20 gm DAILY PRN PO CONSTIPATION; Start 10/13/16 at 14:30 Oxycodone/ Acetaminophen (Endocet (10/ 325)) 1 tab Q4H PRN PO PAIN Last administered on 10/21/16 10:05; Admin Dose 1 TAB; Start 10/16/16 at 16:30 Oxycodone/ Acetaminophen (Endocet (10/ 325)) 2 tab Q4H PRN PO PAIN Last administered on 10/22/16 00:25; Admin Dose 2 TAB; Start 10/16/16 at 16:30 Acetaminophen (Tylenol Tab) 650 mg Q4H PRN PO PAIN AND OR ELEVATED TEMP; Start 10/16/16 at 16:30 Carisoprodol (Soma) 350 mg Q8H PRN PO MUSCLE SPASMS; Start 10/16/16 at 16:30 Lidocaine (Lidoderm) 1 patch DAILY TD Last administered on 10/22/16 09:00; Admin Dose 1 PATCH; Start 10/21/16 at 11:30 DON WELSH MD Oct 22, 2016 17:48
[2016-10-22] MEDS: ATORVASTATIN 40 MG TAB PO SCH (20:07)
[2016-10-22] MEDS: LATANOPROST 0.005% 2.5 ML OPH BOTH EYES SCH (20:08)
[2016-10-22] MEDS: MIRTAZAPINE 15 MG TAB PO SCH (20:08)
[2016-10-22 20:31] VITALS: BP 118/56; RESP 16
[2016-10-22] MEDS: SENNA TAB PO SCH (21:00)
[2016-10-23] MEDS: ACCU-CHEK XX SCH (02:00)
[2016-10-23] MEDS: LEVOTHYROXINE 75 MCG TAB PO SCH (06:36)
[2016-10-23 07:30] VITALS: BP 111/54; RESP 18
[2016-10-23] MEDS: INSULIN ASPART [NOVOLOG] 3 ML PEN SC SCH ×4 (07:35→21:00)
[2016-10-23] MEDS: GLIMEPIRIDE 4 MG TAB PO SCH ×2 (07:35→17:22)
[2016-10-23] MEDS: LIDOCAINE 5% PATCH TD SCH (08:24)
[2016-10-23] MEDS: OXYCODONE/ACETAMINOPHEN (10/325) TAB PO PRN ×3 (08:25→20:17)
[2016-10-23] MEDS: DOCUSATE SODIUM 100 MG CAP PO SCH ×2 (08:25→21:00)
[2016-10-23] MEDS: TOPIRAMATE 100 MG TAB PO SCH ×2 (08:25→20:17)
[2016-10-23] MEDS: LINAGLIPTIN 5 MG TABLET PO SCH (08:25)
[2016-10-23] MEDS: VENLAFAXINE (XR) 75 MG CAP PO SCH (08:25)
[2016-10-23] MEDS: metFORMIN (XR) 500 MG TAB PO SCH ×2 (09:43→17:22)
[2016-10-23] MEDS: CARISOPRODOL 350 MG TAB PO PRN ×2 (13:31→22:13)
[2016-10-23] MEDS: MIRTAZAPINE 15 MG TAB PO SCH (20:17)
[2016-10-23] MEDS: ATORVASTATIN 40 MG TAB PO SCH (20:17)
[2016-10-23] MEDS: LATANOPROST 0.005% 2.5 ML OPH BOTH EYES SCH (20:18)
[2016-10-23 20:59] VITALS: BP 108/56; RESP 18
[2016-10-23] MEDS: SENNA TAB PO SCH (21:00)
[2016-10-24] MEDS: ACCU-CHEK XX SCH (01:48)
[2016-10-24] MEDS: LEVOTHYROXINE 75 MCG TAB PO SCH (06:25)
[2016-10-24] MEDS: INSULIN ASPART [NOVOLOG] 3 ML PEN SC SCH ×2 (07:35→12:00)
[2016-10-24 07:43] VITALS: BP 111/53; RESP 18
[2016-10-24] MEDS: TOPIRAMATE 100 MG TAB PO SCH (08:03)
[2016-10-24] MEDS: DOCUSATE SODIUM 100 MG CAP PO SCH (08:03)
[2016-10-24] MEDS: metFORMIN (XR) 500 MG TAB PO SCH (08:03)
[2016-10-24] MEDS: LINAGLIPTIN 5 MG TABLET PO SCH (08:03)
[2016-10-24] MEDS: GLIMEPIRIDE 4 MG TAB PO SCH (08:03)
[2016-10-24] MEDS: VENLAFAXINE (XR) 75 MG CAP PO SCH (08:04)
[2016-10-24] MEDS: OXYCODONE/ACETAMINOPHEN (10/325) TAB PO PRN (08:04)
[2016-10-24] MEDS: LIDOCAINE 5% PATCH TD SCH (08:04)
--- NOTE | 2016-10-24 09:51 | CONS ---
Date/Time of Note Date/Time of Note DATE: 10/24/16 TIME: 09:48 Consult Date/Type/Reason Admit Date/Time Oct 13, 2016 at 12:50 Subjective Interdisciplinary Team Conference held yesterday. Difficulty entering data into progress note yesterday, so handwritten note yesterday in chart. Please see below for functional levels Objective Vital Signs Date Time Temp Pulse Resp B/P Pulse Ox O2 Delivery O2 Flow Rate FiO2 10/24/16 07:43 97.9 59 18 111/53 98 10/21/16 20:32 Room Air Intake and Output 10/23/16 10/23/16 10/24/16 15:00 23:00 07:00 Intake Total 820 ml 1300 ml Output Total 500 ml Balance 820 ml 800 ml INTERDISCIPLINARY TEAM CONFERENCE BOWEL- Cont BLADDER-Cont SKIN- intact OT- DRESSING-s/MD BATHING-MD TOILETING-MD PT- BED MOBILITY-s/MD TRANSFERS-s/MD AMBULATION-s/MD 200 feet A/P- Interdisciplinary team conference held today. Please see interdisciplinary sheet. Working toward d.c. today with post discharge follow up of physical therapy, occupational therapy. Results/Medications Results 24 hrs Laboratory Tests Test 10/23/16 12:00 10/23/16 16:56 10/23/16 20:13 10/24/16 07:38 Bedside Glucose 148 109 129 86 Medications Current Medications Ondansetron HCl (Zofran Inj) 4 mg Q6H PRN IV NAUSEA AND/OR VOMITING; Start at 13:26 Bisacodyl (Dulcolax Supp) 10 mg DAILY PRN [place] CONSTIPATION; Start 10/13/16 at 13 :26 Docusate Sodium (Colace) 100 mg BID PO Last administered on 10/24/16 08:03; Admin Dose 100 MG; Start 10/13/16 at 13:26 Al Hydrox/Mg Hydrox/Simethicone (Mag-Al Plus) 15 ml Q6H PRN PO CONSTIPATION/ DYSPEPSIA; Start 10/13/16 at 13:26 Phenol (Cepastat Lozenge) 1 lozenge PRN PRN [place] SORE THROAT; Start 10/13/16 at 13:26 Diphenhydramine HCl (Benadryl) 25 mg Q6H PRN IV ITCHING Last administered on 20:25; Admin Dose 25 MG; Start 10/13/16 at 13:26 Naloxone HCl (Narcan) 0.2 mg Q2M PRN IV RR 8 BREATHS/MIN OR LESS; Start at 13:26 Latanoprost (Xalatan) 1 drop QHS BOTH EYES Last administered on 10/23/16 20:18 ; Admin Dose 1 DROP; Start 10/13/16 at 13:26 Mirtazapine (Remeron) 15 mg HS PO Last administered on 10/23/16 20:17; Admin Dose 15 MG; Start 10/13/16 at 13:26 Topiramate (Topamax) 100 mg BID PO Last administered on 10/24/16 08:03; Admin Dose 100 MG; Start 10/13/16 at 13:26 Venlafaxine HCl (Effexor Xr) 150 mg DAILY PO Last administered on 10/24/16 08: 04; Admin Dose 150 MG; Start 10/13/16 at 13:26 Atorvastatin Calcium (Lipitor) 40 mg HS PO Last administered on 10/23/16 20:17 ; Admin Dose 40 MG; Start 10/13/16 at 13:26 Diagnostic Test (Pha) (Accu-Chek) 1 ea 02 XX ; Start 10/13/16 at 13:26 Miscellaneous Information 1 ea NOTE XX ; Start 10/13/16 at 13:26 Glucose (Glutose) 15 gm Q15M PRN PO DECREASED GLUCOSE; Start 10/13/16 at 13:26 Glucose (Glutose) 22.5 gm Q15M PRN PO DECREASED GLUCOSE; Start 10/13/16 at 13: 26 Dextrose (D50w Syringe) 25 ml Q15M PRN IV DECREASED GLUCOSE; Start 10/13/16 at 13:26 Dextrose (D50w Syringe) 50 ml Q15M PRN IV DECREASED GLUCOSE; Start 10/13/16 at 13:26 Glucagon (Glucagen) 1 mg Q15M PRN IM DECREASED GLUCOSE; Start 10/13/16 at 13:26 Glucose (Glutose) 15 gm Q15M PRN BUCCAL DECREASED GLUCOSE; Start 10/13/16 at 13 :26 Linagliptin (Tradjenta) 5 mg DAILY PO Last administered on 10/24/16 08:03; Admin Dose 5 MG; Start 10/13/16 at 13:26 Senna (Senokot) 1 tab HS PO Last administered on 10/20/16 20:26; Admin Dose 1 TAB; Start 10/13/16 at 21:00 Bisacodyl (Dulcolax Supp) 10 mg DAILY PRN [place] CONSTIPATION; Start 10/13/16 at 14 :30 Magnesium Hydroxide (Milk Of Mag) 30 ml BID PRN PO CONSTIPATION; Start at 14:30 Lactulose (Enulose) 20 gm DAILY PRN PO CONSTIPATION; Start 10/13/16 at 14:30 Oxycodone/ Acetaminophen (Endocet (10/ 325)) 1 tab Q4H PRN PO PAIN Last administered on 10/23/16 20:17; Admin Dose 1 TAB; Start 10/16/16 at 16:30 Oxycodone/ Acetaminophen (Endocet (10/ 325)) 2 tab Q4H PRN PO PAIN Last administered on 10/24/16 08:04; Admin Dose 2 TAB; Start 10/16/16 at 16:30 Acetaminophen (Tylenol Tab) 650 mg Q4H PRN PO PAIN AND OR ELEVATED TEMP; Start 10/16/16 at 16:30 Carisoprodol (Soma) 350 mg Q8H PRN PO MUSCLE SPASMS Last administered on 22:13; Admin Dose 350 MG; Start 10/16/16 at 16:30 Lidocaine (Lidoderm) 1 patch DAILY TD Last administered on 10/24/16 08:04; Admin Dose 1 PATCH; Start 10/21/16 at 11:30 SADIE PERSAUD MD Oct 24, 2016 09:51
--- NOTE | 2016-11-08 13:53 | DS ---
DATE OF ADMISSION: 10/13/2016 DATE OF DISCHARGE: 10/24/2016 ADMISSION DIAGNOSES 1. Lumbosacral radiculopathy with lumbar spinal spondylolisthesis, status post laminectomy and fusi on on 10/09/2016. 2. Acute pain syndrome. 3. Diabetes mellitus type 2. 4. Left knee degenerative joint disease. 5. Impairments in self-care and mobility. DISCHARGE DIAGNOSES: 1. Lumbosacral radiculopathy with lumbar spinal spondylolisthesis, status post laminectomy and fusi on on 10/09/2016. 2. Acute pain syndrome. 3. Diabetes mellitus type 2. 4. Left knee degenerative joint disease. 5. Improvements in self-care and mobility. HOSPITAL COURSE: The patient was admitted for comprehensive interdisciplinary acute rehab and made excellent functional gains during the course of the stay. The patient progressed from an initial mo derate assist for self-care and mobility tasks and progressed to the point of supervised to modified independent for all areas of self-care and mobility including ambulating over 200 feet with the use of a front-wheel walker. The patient is being discharged home with the recommendation of [facility] physical therapy and occupational therapy followup. DISCHARGE MEDICATIONS: Per the medication reconciliation sheet. CONDITION ON DISCHARGE: Stable. Dictated By: SADIE ARRIOLA/ANTHONY Conf#: [id number] DID#: [id number]
== END 2016-10-24 13:25 | disposition home health service (06) | DRG 948 ==
LOC: VRC 12:50
PROVIDERS: ADMIT Physical Medicine & Rehabilitation; ATTEND Internal Medicine
DX: G89.18 Other acute postprocedural pain (principal); N39.0 Urinary tract infection, site not specified; B96.20 Unspecified Escherichia coli [E. coli] as the cause of diseases classified elsewhere; E11.9 Type 2 diabetes mellitus without complications; E03.9 Hypothyroidism, unspecified; D64.9 Anemia, unspecified; M54.17 Radiculopathy, lumbosacral region; M17.12 Unilateral primary osteoarthritis, left knee; F34.1 Dysthymic disorder; H40.9 Unspecified glaucoma; Z79.4 Long term (current) use of insulin; Z98.890 Other specified postprocedural states
CPT/HCPCS: 73560; 80053; 81001; 81003; 82962; 85025; 87081; 87086; 97110; 97112; 97116; 97150; 97163; 97166; 97530; 97535; J1200; J1815; L1820